=== PATIENT | female | born 2000 | race Caucasian/White ===

== ENCOUNTER 2020-11-25 18:29 | Inpatient (IN) ==
[2020-11-25] MEDS ORDERED: SODIUM CHLORIDE 0.9% 1000ML 1,000 ML IV SCH (18:45)
--- NOTE | 2020-11-25 18:51 | Emergency Department Note ---
Impression & Plan Benzodiazepine overdose, Somnolence, Suicidal ideation, Depression ED Provider Note NAME: DEB PAGAN AGE: 20 SEX: F : 2000 ARRIVES VIA: Ambulance INFORMANT: [Patient][ems] ED PROVIDER(S): [George Radford MD] CHIEF COMPLAINT: Intentional overdose HISTORY OF PRESENT ILLNESS: The patient is a 20-year-old female who was brought by EMS. She states that about an hour ago she took a handful of 0.25 mg Xanax tablets. She did this as a suicide attempt. She then realized that she did not want to and called the ambulance. The patient denies any alcohol use or any other medications ingested. She states that she has been feeling depressed for about 3 days, she is not sure why. She states that today, her and her boyfriend had a large argument and she states that this pushed her into the overdose. There has been no vomiting, she has been well lately. No fever or chills or cough or congestion. She had a sore throat about a week ago but this has re solved. Patient is a [employer] student. She has been back in this area for about 4 weeks. She states that she is from [place]. The patient states she feels a little sleepy right now but otherwise fine. REVIEW OF SYSTEMS: See HPI for pertinent positives and negatives. A total of ten systems were reviewed and were otherwise negative. PMHx/PSHx: See Below SOCIAL HISTORY: See Below. PHYSICAL EXAM: GENERAL: Patient is in no acute distress. HEENT: No acute trauma, normocephalic atraumatic, mucous membranes moist, no nasal congestion, no scleral icterus. NECK: No stridor, no adenopathy, no meningismus, trachea is midline. LUNGS: Clear to auscultation bilaterally, no wheeze, no rhonchi, breath sounds equal. HEART: Without murmurs gallops or rubs, regular rate and rhythm. ABDOMEN: Soft, nontender, bowel sounds positive, no hernias, no peritonitis. EXTREMITIES: No cyanosis or edema, full range of motion of all the joints without pain or difficulty, no signs for acute trauma. NEUROLOGIC: Oriented x 3, no acute motor or sensory deficits, no focal weakness. SKIN: No rash, no jaundice, no diaphoresis. Psychiatric: Cooperative, currently voluntary. Admits to a suicide attempt by taking a Xanax overdose. DIFFERENTIAL DIAGNOSIS: Mood disorder, infection, hypoglycemia, electrolyte abnormalities, cardiac sources, suicidal ideation, depression, overdose, alcohol abuse, intracerebral event, toxicologic etiology, trauma, neurologic event, as well as other pathologies. EMERGENCY DEPARTMENT COURSE/PROCEDURES: ECG: Indication was overdose. The ECG shows a normal sinus rhythm with some sinus arrhythmia. The rate is 66. The QTc is 406. There is no ST elevation, no PVCs. Continuous Cardiac Monitoring: An order was placed for continuous cardiac monitoring. The monitor shows a rate of 71 with normal sinus rhythm. Critical Care Note: I have personally spent 44 minutes of critical care time in the direct management of this patient. This includes bedside care, interpretation of diagnostic studies, and testing, discussion with consultants, patient, and family members, and other required patient management activities. This 44 minutes is in excess of all separately billable procedures. MEDICAL DECISION MAKING: There is no leukocytosis or concerning anemia. There is a normal platelet count. No significant electrolyte abnormality or kidney failure. Bilirubin is slightly elevated but the remaining liver enzymes are unremarkable. Patient appeared to be in a euthyroid state. testing returned negative. Uri nalysis did not show infection. Urine tox was positive for benzos and marijuana. Alcohol, Tylenol and aspirin levels were essentially undetectable. ECG showed a sinus rhythm, there was no acute ischemic change. On exam, the patient was slightly somnolent and sleepy but, able to answer questions, her airway was intact. She was not hypotensive, she was not toxic. The patient did admit to taking Xanax in overdose as a suicide attempt. The patient was given a liter of IV saline, she was placed on the cafeteria monitor. She was watched closely by our staff. I did speak to the poison center. The poison center recommended observation for around 6 hours. If she remained interactive, if her vital signs remained stable, she would at that point be medically clear for a psychiatric evaluation. Supportive measures were recommended for her overdose. The patient has done well in the ED. She was observed for the time advised. She has had no airway issues, her vital signs remain stable. She has been able to answer questions and is arousable. She still is somewhat sleepy but not as sleepy as earlier. The patient is currently voluntary. A 302 petition has been filled out in case she would try to leave. She does need hospitalization for this overdose. Patient was seen by psychiatry case management. A bed search is underway. Patient is currently resting in her room. Case is being assumed by Dr. Victoria at the change of shift, please see his notes for the patient's final disposition and plan. Past Med/Surg History Medical History Anorexia nervosa Streptococcal pharyngitis Surgical History No significant past surgical history Social History Smoking Status: Never smoker Preferred Language: Bahamian Feels Safe at Home: Yes Allergies Allergies Allergy/AdvReac Type Severity Reaction Status Date / Time gluten AdvReac Unknown Unverified 11/25/20 20:26 lactase [From Dairy Aid] AdvReac Unknown Unverified 11/25/20 20:26 soy AdvReac Unknown Unverified 11/25/20 20:26 Home Meds Home Medications Medication Instructions Recorded Confirmed norethindrone ac-eth estradiol 1 tab PO QAM 11/14/19 11/25/20 [11/07 ()] hygfgyo-[id number] 1 tab PO QAM 11/25/20 11/25/20 clonidine HCl 0.1 mg PO QAM 11/25/20 11/25/20 multivitamin 1 tab PO QAM 11/25/20 11/25/20 venlafaxine 100 mg PO QAM 11/25/20 11/25/20 Results & Data (ED) Vital Signs Vital Signs - 24 hr 11/25/20 18:30 11/25/20 18:36 11/25/20 18:41 Temperature 37 C Temperature Source Oral Pulse Rate 71 81 69 Pulse Rate from SpO2 Sensor 78 71 Respiratory Rate 12 14 17 Respiratory Effort / Characteristics Non-Labored Respiratory Depth Normal Respiratory Pattern Regular Blood Pressure 118/75 118/75 Blood Pressure Mean 89 89 Blood Pressure Position Sitting Pulse Oximetry 100 99 99 Oxygen Delivery Method Room Air Sepsis Recent Fever Within 48 Hours No Sepsis New/Unexplained Change in Mental Status N/A Sepsis Action Taken by Nursing No Action Required 11/25/20 18:45 11/25/20 19:00 11/25/20 19:01 Temperature Temperature Source Pulse Rate 74 80 75 Pulse Rate from SpO2 Sensor 72 76 77 Respiratory Rate 21 22 17 Respiratory Effort / Characteristics Respiratory Depth Respiratory Pattern Blood Pressure 110/73 Blood Pressure Mean 85 Blood Pressure Position Pulse Oximetry 100 100 100 Oxygen Delivery Method Sepsis Recent Fever Within 48 Hours Sepsis New/Unexplained Change in Mental Status Sepsis Action Taken by Nursing 11/25/20 19:08 11/25/20 19:15 11/25/20 19:30 Temperature Temperature Source Pulse Rate 72 67 69 Pulse Rate from SpO2 Sensor 74 72 71 Respiratory Rate 13 14 21 Respiratory Effort / Characteristics Respiratory Depth Respiratory Pattern Blood Pressure 109/72 97/75 L Blood Pressure Mean 84 82 Blood Pressure Position Pulse Oximetry 100 95 100 Oxygen Delivery Method Sepsis Recent Fever Within 48 Hours Sepsis New/Unexplained Change in Mental Status Sepsis Action Taken by Nursing 11/25/20 19:31 11/25/20 19:45 11/25/20 20:00 Temperature Temperature Source Pulse Rate 73 61 63 Pulse Rate from SpO2 Sensor 74 60 63 Respiratory Rate 21 17 19 Respiratory Effort / Characteristics Respiratory Depth Respiratory Pattern Blood Pressure 106/68 Blood Pressure Mean 80 Blood Pressure Position Pulse Oximetry 100 99 99 Oxygen Delivery Method Sepsis Recent Fever Within 48 Hours Sepsis New/Unexplained Change in Mental Status Sepsis Action Taken by Nursing 11/25/20 20:01 11/25/20 20:15 11/25/20 20:30 Temperature Temperature Source Pulse Rate 65 75 68 Pulse Rate from SpO2 Sensor 64 71 68 Respiratory Rate 20 18 20 Respiratory Effort / Characteristics Respiratory Depth Respiratory Pattern Blood Pressure 106/72 Blood Pressure Mean 83 Blood Pressure Position Pulse Oximetry 99 100 99 Oxygen Delivery Method Sepsis Recent Fever Within 48 Hours Sepsis New/Unexplained Change in Mental Status Sepsis Action Taken by Nursing 11/25/20 20:31 11/25/20 20:45 11/25/20 21:00 Temperature Temperature Source Pulse Rate 71 73 74 Pulse Rate from SpO2 Sensor 71 73 73 Respiratory Rate 20 20 16 Respiratory Effort / Characteristics Respiratory Depth Respiratory Pattern Blood Pressure 109/71 Blood Pressure Mean 83 Blood Pressure Position Pulse Oximetry 98 97 97 Oxygen Delivery Method Room Air Sepsis Recent Fever Within 48 Hours Sepsis New/Unexplained Change in Mental Status Sepsis Action Taken by Snf Medications Current Medication List: was personally reviewed by me Laboratory Data Attestation: I reviewed the patient's lab results. Result diagrams: 11/25/20 19:03 11/25/20 19:03 Lab Results 11/25/20 11/25/20 11/25/20 Range/Units 19:03 19:03 19:03 WBC 8.19 (4.8-10.8) K/uL RBC 4.68 (4.2-5.4) M/uL Hgb 14.5 (12.0-16.0) g/dL Hct 41.8 (37-47) % MCV 89.3 (80-100) fL MCH 31.0 (25-34) pg MCHC 34.7 (32-36) g/dL RDW Std Deviation 40.8 (36.4-46.3) fL RDW Coeff of Heber 12.6 (11.5-14.5) % Plt Count 251 (130-400) K/uL MPV 11.1 H (7.4-10.4) fL Immature Gran % (Auto) 0.1 % Neut % (Auto) 64.3 % Lymph % (Auto) 29.4 % [place] % (Auto) 5.6 % Eos % (Auto) 0.4 % Baso % (Auto) 0.2 % Neut # (Auto) 5.26 (1.4-6.5) K/uL Lymph # (Auto) 2.41 (1.2-3.4) K/uL [place] # (Auto) 0.46 (0.11-0.59) K/uL Eos # (Auto) 0.03 (0-0.5) K/uL Baso # (Auto) 0.02 (0-0.2) K/uL Immature Gran # (Auto) 0.01 (0.00-0.02) K/uL Sodium 141 (136-145) mmol/L Potassium 4.4 (3.5-5.1) mmol/L Chloride 106 (98-107) mmol/L Carbon Dioxide 28 (21-32) mmol/L Anion Gap 7.0 (3-11) BUN 11 (7-18) mg/dl Creatinine 0.87 (0.6-1.2) mg/dl Est Cr Clr Drug Dosing 84.0 ml/min Est GFR ( Amer) 110.4 Est GFR (Non-Af Amer) 95.2 BUN/Creatinine Ratio 12.5 (10-20) Glucose 82 (70-99) mg/dl Calcium 9.5 (8.5-10.1) mg/dl Total Bilirubin 1.3 H (0.2-1) mg/dl AST 11 L (15-37) U/L ALT 17 (12-78) U/L Alkaline Phosphatase 60 (45-117) U/L Total Protein 7.1 (6.4-8.2) gm/dl Albumin 4.0 (3.4-5.0) gm/dl Globulin 3.1 (2.5-4.0) gm/dl Albumin/Globulin Ratio 1.3 (0.9-2) TSH 1.300 (0.300-4.500) uIu/ml HCG, Qual (Negative) Urine Color Urine Appearance (Clear) Urine pH (4.5-7.5) Ur Specific [place] (1.000-1.030) Urine Protein (Negative) Urine Glucose (UA) (Negative) Urine Ketones (Negative) Urine Blood (Negative) Urine Nitrite (Negative) Urine Bilirubin (Negative) Urine Urobilinogen (Negative) Ur Leukocyte Esterase (Negative) Urine WBC (Auto) (0-5) /hpf Urine RBC (Auto) (0-4) /hpf U Hyaline Cast (Auto) (0-5) /lpf U Epithel Cells (Auto) (0-5) /lpf Urine Bacteria (Auto) (Negative) Salicylates < 1.7 L (2.8-20) mg/dl Urine Opiates Screen (Neg) Ur Methadone, Qual (Neg) Acetaminophen < 2 L (10-30) ug/ml Urine Barbiturates (Neg) Ur Phencyclidine (PCP) (Neg) U Amphetamin/Meth Scrn (Neg) MDMA (Ecstasy) Screen (Neg) U Benzodiazepines Scrn (Neg) Ur Cocaine Metabolite (Neg) U Marijuana (THC) Screen (Neg) Ethyl Alcohol mg/dL (0-3) mg/dl COVID-19 Eval Order SARS-CoV-2, RNA, NAAT (NEGATIVE) 11/25/20 11/25/20 11/25/20 Range/Units 19:03 19:03 20:14 WBC (4.8-10.8) K/uL RBC (4.2-5.4) M/uL Hgb (12.0-16.0) g/dL Hct (37-47) % MCV (80-100) fL MCH (25-34) pg MCHC (32-36) g/dL RDW Std Deviation (36.4-46.3) fL RDW Coeff of Heber (11.5-14.5) % Plt Count (130-400) K/uL MPV (7.4-10.4) fL Immature Gran % (Auto) % Neut % (Auto) % Lymph % (Auto) % [place] % (Auto) % Eos % (Auto) % Baso % (Auto) % Neut # (Auto) (1.4-6.5) K/uL Lymph # (Auto) (1.2-3.4) K/uL [place] # (Auto) (0.11-0.59) K/uL Eos # (Auto) (0-0.5) K/uL Baso # (Auto) (0-0.2) K/uL Immature Gran # (Auto) (0.00-0.02) K/uL Sodium (136-145) mmol/L Potassium (3.5-5.1) mmol/L Chloride (98-107) mmol/L Carbon Dioxide (21-32) mmol/L Anion Gap (3-11) BUN (7-18) mg/dl Creatinine (0.6-1.2) mg/dl Est Cr Clr Drug Dosing ml/min Est GFR ( Amer) Est GFR (Non-Af Amer) BUN/Creatinine Ratio (10-20) Glucose (70-99) mg/dl Calcium (8.5-10.1) mg/dl Total Bilirubin (0.2-1) mg/dl AST (15-37) U/L ALT (12-78) U/L Alkaline Phosphatase (45-117) U/L Total Protein (6.4-8.2) gm/dl Albumin (3.4-5.0) gm/dl Globulin (2.5-4.0) gm/dl Albumin/Globulin Ratio (0.9-2) TSH (0.300-4.500) uIu/ml HCG, Qual Negative (Negative) Urine Color Urine Appearance (Clear) Urine pH (4.5-7.5) Ur Specific [place] (1.000-1.030) Urine Protein (Negative) Urine Glucose (UA) (Negative) Urine Ketones (Negative) Urine Blood (Negative) Urine Nitrite (Negative) Urine Bilirubin (Negative) Urine Urobilinogen (Negative) Ur Leukocyte Esterase (Negative) Urine WBC (Auto) (0-5) /hpf Urine RBC (Auto) (0-4) /hpf U Hyaline Cast (Auto) (0-5) /lpf U Epithel Cells (Auto) (0-5) /lpf Urine Bacteria (Auto) (Negative) Salicylates (2.8-20) mg/dl Urine Opiates Screen (Neg) Ur Methadone, Qual (Neg) Acetaminophen (10-30) ug/ml Urine Barbiturates (Neg) Ur Phencyclidine (PCP) (Neg) U Amphetamin/Meth Scrn (Neg) MDMA (Ecstasy) Screen (Neg) U Benzodiazepines Scrn (Neg) Ur Cocaine Metabolite (Neg) U Marijuana (THC) Screen (Neg) Ethyl Alcohol mg/dL < 3.0 (0-3) mg/dl COVID-19 Eval [facility] SARS-CoV-2, RNA, NAAT (NEGATIVE) 11/25/20 11/25/20 11/25/20 Range/Units 20:14 22:30 22:30 WBC (4.8-10.8) K/uL RBC (4.2-5.4) M/uL Hgb (12.0-16.0) g/dL Hct (37-47) % MCV (80-100) fL MCH (25-34) pg MCHC (32-36) g/dL RDW Std Deviation (36.4-46.3) fL RDW Coeff of Heber (11.5-14.5) % Plt Count (130-400) K/uL MPV (7.4-10.4) fL Immature Gran % (Auto) % Neut % (Auto) % Lymph % (Auto) % [place] % (Auto) % Eos % (Auto) % Baso % (Auto) % Neut # (Auto) (1.4-6.5) K/uL Lymph # (Auto) (1.2-3.4) K/uL [place] # (Auto) (0.11-0.59) K/uL Eos # (Auto) (0-0.5) K/uL Baso # (Auto) (0-0.2) K/uL Immature Gran # (Auto) (0.00-0.02) K/uL Sodium (136-145) mmol/L Potassium (3.5-5.1) mmol/L Chloride (98-107) mmol/L Carbon Dioxide (21-32) mmol/L Anion Gap (3-11) BUN (7-18) mg/dl Creatinine (0.6-1.2) mg/dl Est Cr Clr Drug Dosing ml/min Est GFR ( Amer) Est GFR (Non-Af Amer) BUN/Creatinine Ratio (10-20) Glucose (70-99) mg/dl Calcium (8.5-10.1) mg/dl Total Bilirubin (0.2-1) mg/dl AST (15-37) U/L ALT (12-78) U/L Alkaline Phosphatase (45-117) U/L Total Protein (6.4-8.2) gm/dl Albumin (3.4-5.0) gm/dl Globulin (2.5-4.0) gm/dl Albumin/Globulin Ratio (0.9-2) TSH (0.300-4.500) uIu/ml HCG, Qual (Negative) Urine Color Dark Yellow Urine Appearance Clear (Clear) Urine pH 6.5 (4.5-7.5) Ur Specific [place] 1.022 (1.000-1.030) Urine Protein 1+ H (Negative) Urine Glucose (UA) Negative (Negative) Urine Ketones 1+ H (Negative) Urine Blood Negative (Negative) Urine Nitrite Negative (Negative) Urine Bilirubin Negative (Negative) Urine Urobilinogen Negative (Negative) Ur Leukocyte Esterase Negative (Negative) Urine WBC (Auto) 1-5 (0-5) /hpf Urine RBC (Auto) 0-4 (0-4) /hpf U Hyaline Cast (Auto) 1-5 (0-5) /lpf U Epithel Cells (Auto) >30 H (0-5) /lpf Urine Bacteria (Auto) Negative (Negative) Salicylates (2.8-20) mg/dl Urine Opiates Screen Neg (Neg) Ur Methadone, Qual Neg (Neg) Acetaminophen (10-30) ug/ml Urine Barbiturates Neg (Neg) Ur Phencyclidine (PCP) Neg (Neg) U Amphetamin/Meth Scrn Neg (Neg) MDMA (Ecstasy) Screen Neg (Neg) U Benzodiazepines Scrn Pos H (Neg) Ur Cocaine Metabolite Neg (Neg) U Marijuana (THC) Screen Pos H (Neg) Ethyl Alcohol mg/dL (0-3) mg/dl COVID-19 Eval Order SARS-CoV-2, RNA, NAAT NEGATIVE (NEGATIVE) Administered Medications Discontinued Medications Sodium Chloride (Nss 1000ml) 1,000 mls @ 999 mls/hr IV .[id number] SAADIA Stop: 11/25/20 19:45 Last Infusion: 11/25/20 21:00 Dose: 0 mls/hr Documented by: [id number] Admin: 11/25/20 20:09 Dose: 999 mls/hr Documented by: [id number] Discharge Plan Visit Data Chief Complaint: Overdose (Intentional) Stated Complaint: OVERDOSE ED Provider: Ryan Victoria Discharge Problem: Benzodiazepine overdose, Somnolence, Suicidal ideation, Depression Patient Disposition: Still a Patient Condition: Good Forms Stand Alone Forms: [facility], Suicide Prevention Resources Prescriptions Prescriptions: No Action multivitamin Tablet 1 tab PO QAM RF: 0 clonidine HCl 0.1 mg Tablet 0.1 mg PO QAM RF: 0 venlafaxine 100 mg Tablet 100 mg PO QAM RF: 0 [id number]-nvpfwkvnz-byfc [id number] mg Tablet 1 tab PO QAM RF: 0 norethindrone ac-eth estradiol [11/07)] 1-20 mg-mcg tablet 1 tab PO QAM RF: 0 Referrals Referrals: [facility] [Primary Care Provider] - Discharge Problem: Benzodiazepine overdose Qualifiers: Encounter type: initial encounter Injury intent: intentional self-harm Qualified Code(s): T42.4X2A - Poisoning by benzodiazepines, intentional self- harm, initial encounter Depression Qualifiers: Depression Type: unspecified Qualified Code(s): F32.9 - Major depressive disorder, single episode, unspecified
[2020-11-25 19:22] LABS: Basophils # (auto) 0.02 K/uL (0-0.2); Basophils % (auto) 0.2 %; Eosinophils # (auto) 0.03 K/uL (0-0.5); Eosinophils % (auto) 0.4 %; Hematocrit (blood only) 41.8 % (37-47); Hemoglobin 14.5 g/dL (12.0-16.0); Immature Granulocytes # (auto) 0.01 K/uL (0.00-0.02); Immature Granulocytes % (auto) 0.1 %; Lymphocytes # (auto) 2.41 K/uL (1.2-3.4); Lymphocytes % (auto) 29.4 %; Mean Corpuscular Hgb Conc 34.7 g/dL (32-36); Mean Corpuscular Volume 89.3 fL (80-100); Mean Platelet Volume 11.1 fL (7.4-10.4); Monocytes # (auto) 0.46 K/uL (0.11-0.59); Monocytes % (auto) 5.6 %; Neutrophils # (auto) 5.26 K/uL (1.4-6.5); Neutrophils % (auto) 64.3 %; Platelet Count 251 K/uL (130-400); RDW Coefficient of Variation 12.6 % (11.5-14.5); RDW Standard Deviation 40.8 fL (36.4-46.3); Red Blood Count 4.68 M/uL (4.2-5.4); White Blood Count 8.19 K/uL (4.8-10.8)
[2020-11-25 19:41] LABS: BUN Creatinine Ratio 12.5 (10-20); Calcium 9.5 mg/dl (8.5-10.1); Est GFR (African American) 110.4; Est GFR (Non-African American) 95.2; Potassium 4.4 mmol/L (3.5-5.1)
[2020-11-25 19:42] LABS: Acetaminophen < 2 ug/ml (10-30); Pregnancy Test, Serum Negative (Negative); Salicylate < 1.7 mg/dl (2.8-20)
[2020-11-25 19:52] LABS: Albumin Globulin Ratio 1.3 (0.9-2); Bilirubin,Total 1.3 mg/dl (0.2-1); Globulin 3.1 gm/dl (2.5-4.0); Thyroid Stimulating Hormone 1.3 uIu/ml (0.300-4.500); Total Protein 7.1 gm/dl (6.4-8.2)
[2020-11-25 22:47] LABS: Appearance Urine Clear (Clear); Bacteria Urine Automated Negative (Negative); Bilirubin Urine Negative (Negative); Blood Urine Negative (Negative); Color Urine Dark Yellow; Epithelial Cell Urine Auto >30 /lpf (0-5); Glucose Urine UA Negative (Negative); Ketones Urine 1+ (Negative); Leukocyte Esterase Urine Negative (Negative); Nitrite Urine Negative (Negative); Protein Urine 1+ (Negative); RBC Urine Automated 0-4 /hpf (0-4); Specific Gravity Urine 1.022 (1.000-1.030); Urobilinogen Urine Negative (Negative); pH Urine 6.5 (4.5-7.5)
[2020-11-25 23:02] LABS: Amphetamines+Metham, Urine Neg (Neg); Barbiturates, Urine Neg (Neg); Benzodiazepine, Urine Pos (Neg); Cocaine, Urine Neg (Neg); MDMA (Ecstacy), Urine Neg (Neg); Methadone, Urine Neg (Neg); Opiate, Urine Neg (Neg); Phencyclidine, Urine Neg (Neg)
--- NOTE | 2020-11-25 23:43 | Emergency Department Note ---
ED Visit Note Received patient in signout. History and physical verified by me. Patient accepted to [facility] . : Benzodiazepine overdose Qualifiers: Encounter type: initial encounter Injury intent: intentional self-harm Qualified Code(s): T42.4X2A - Poisoning by benzodiazepines, intentional self- harm, initial encounter Depression Qualifiers: Depression Type: unspecified Qualified Code(s): F32.9 - Major depressive disorder, single episode, unspecified
[2020-11-26] MEDS ORDERED: ACETAMINOPHEN 325 MG TAB PO PRN (02:52)
[2020-11-26] MEDS ORDERED: BISMUTH SUBSALICYLATE LIQD 236 ML PO PRN (02:52)
[2020-11-26] MEDS ORDERED: SODIUM CHLORIDE 0.65% NA SOLN 45 ML (OCEAN) PRN (02:52)
[2020-11-26] MEDS ORDERED: MAGNESIUM HYDROXIDE SUSP 30 ML UDC PO PRN (02:52)
[2020-11-26] MEDS ORDERED: hydrOXYzine HCl 25 MG TAB PO PRN ×2 (02:52)
--- NOTE | 2020-11-26 08:58 | Electrocardiogram Report ---
Test Reason : Blood Pressure : / mmHG Vent. Rate : 066 BPM Atrial Rate : 066 BPM P-R Int : 144 ms QRS Dur : 068 ms QT Int : 388 ms P-R-T Axes : 044 065 037 degrees QTc Int : 406 ms Normal sinus rhythm with sinus arrhythmia Normal ECG No previous ECGs available Confirmed by Juan Carpenter ([id number]) on 11/26/2020 8:58:13 AM Referred By: REFERRED SELF Confirmed By:Juan Carpenter
[2020-11-26] MEDS ORDERED: [UNRECOGNIZED DRUG - OTHER] PO SCH (09:00)
[2020-11-26] MEDS ORDERED: NORETHINDRONE AC ETH ESTRADIOL PO SCH (09:00)
[2020-11-26] MEDS: MULTIVITAMIN TAB PO SCH (10:25)
--- NOTE | 2020-11-26 11:05 | History & Physical ---
Date of Service November 26, 2020 Impression / Recommendations Impression 20 yo female with a history of anorexia nervosa and recurrent depressive symptoms with anxious distress presents after impulsive OD of Xanax. (1) Depression: 11/26--The patient was admitted to the [facility] ([facility] mental health unit) on q15 min checks (behavioral with suicide precautions) for safety. The patient will participate in group, recreational, and milieu therapies and will be offered additional individual and family sessions as clinically appropriate. LM for outpatient treating prescriber (Dr. Mooney [phone]) to coordinate care, particularly around controlled substances and my impression that may benefit from a trial of Abilify augmentation of Pristiq given recurrent nature of depression, ?cyclothymia, early ED recovery, and need to minimize benzos following OD. Also to determine need for local psychiatry care if does stay at [facility]. Reviewed that Pristiq is non-formulary and she bevieves boyfriend may be willing to bring today. Reviewed that can have discontinuation syndrome as well. She would rather miss dose today than take Effexor replacement. Depression Type: unspecified Qualified Code(s): F32.9 - Major depressive disorder, single episode, unspecified (2) Benzodiazepine overdose: 11/26--currently sleepy from lack of sleep in ED, doesn't appear to have any lasting sedation from Xanax OD. Klonopin was held this am. Patient was made aware she will not receive Xanax prn here as she misused it and prn Vistaril will be available. Reviewed that I am also concerned about depressant effects of ongoing Klonopin use, particularly in combo with regular MJ use and although won't be stopped abruptly will start tapering dose here to avoid withdrawal. Klonopin 0.25 mg BID starting tonight (previous dose prior to OD Klonopin 0.5 mg BID). Encounter type: initial encounter Injury intent: intentional self-harm Qualified Code(s): T42.4X2A - Poisoning by benzodiazepines, intentional self-harm, initial encounter (3) Anorexia nervosa: has rather limited diet given allergies and celiac disease. involve nutrition as necessary, monitor PO intake. Risk Factors Assessment Do You Have Access To A Gun?: No Protective Factors Assessment Employed: No Psychiatric History Identifying Data SAADIA PAGAN is a 20-year-old F, [employer] student from [place], has a history of anorexia nervosa, and was admitted on 11/26/20 02:04 on a 201 voluntary commitment following a Xanax OD. Chief Complaint "I just got really down for a few days". History of Present Illness Saadia states that her mood has been "up and down" over the past year. She has struggled with restricting subtype of anorexia and had inpatient residential treatment last year. She states she has been doing well since, maintaining care providers/appointments while home in [place] and with HEALS team at [facility] when here in [place]. She states that she has non-specific anxiety re: change and ability to manage her ED and has been using Klonopin consistently for several months without incident. She denies panic, states does use prn Xanax for breakthrough anxiety though also relies on MJ most nights for anxiety/sleep. She feels it is also helpful for her appetite and ED recovery and comes from a state where it is legal but hasn't sought a medical card in [place]. 2 days leading up to OD of "a handful" of Xanax 0.25 mg she was having difficult sleeping, feeling low, and getting more rigid about her meal plan. The OD occurred following an argument with her boyfriend and she is not clear that they are/aren't broken up. She denies poor appetite but states when these spells happen, about once a month (no association with menses as on continuous suppression with OCP). She also has periods of up to a few weeks were her mood is "better than ever" and she is "super productive, like I'm on top of ev erything and get alot done and am very happy". She denies distractibility, pressured speech, impulsivity, etc during that time and states that others only notice when she is depressed as she is pretty outgoing/fun loving at baseline. Overall she likes Pristiq better than past medications and finds it helpful though "I still get really anxious at times" and doesn't like feeling these shifts "out of nowhere". She argued with her mother in ED over need for admission and declined an BRIAN but did communicate her whereabouts to father and step-father. Past Psychiatric History Previous Psych History: anorexia nervosa, unspecified depressive disorder and RONALD. Current Psychiatric Diagnosis: Depression Outpatient Services: [facility] with group, nutrition, medication management per Cari--Dr. Lisa Mooney. Previous Psych Admissions: no psych, yes for residential ED Do You Have Access To A Gun?: No History of Previous Suicide Attempt: No Past Medication Trials: Lexapro, Venlafaxine (hated it, discontinuation syndrome), Ativan (withdrawal) Past Head Trauma/Neuro History History of Concussion/Seizure: No Allergies Allergy/AdvReac Type Severity Reaction Status Date / Time gluten AdvReac Unknown Unverified 11/25/20 20:26 lactase [From Dairy Aid] AdvReac Unknown Unverified 11/25/20 20:26 soy AdvReac Unknown Unverified 11/25/20 20:26 Home Medications Medication Instructions Recorded Confirmed Type norethindrone ac-eth estradiol 1 tab PO QAM 11/14/19 11/25/20 History [11/07 ()] [id number] 1 tab PO QAM 11/25/20 11/25/20 History multivitamin 1 tab PO QAM 11/25/20 11/25/20 History alprazolam [Xanax] 0.25 mg PO TID PRN 11/26/20 11/26/20 History clonazepam [Klonopin] 0.5 mg PO BID 11/26/20 11/26/20 History desvenlafaxine succinate [Pristiq] 100 mg PO DAILY 11/26/20 11/26/20 History Family History Family History of: Depression (paternal grandmother (2 suicide attempts--1 dramatic with head in oven); sister seasonal depression), Anxiety (father), Alcoholism/Drug Abuse (aunt) and Bipolar (suspected in paternal aunt) Alcohol History Hx of Alcohol Use Over the Past 12 Months: No AUDIT Total Score: 5 Smoking Use Have You Smoked or Used Tobacco Products in the Last 30 Days: No Smoking Status: Never smoker Substance History Hx of Prescription Med Misuse Over the Past 12 Months: No Hx of Over the Counter Med Misuse Over the Past 12 Months: No Hx of Inhalent Misuse Over the Past 12 Months: No Hx of Organic Substance Use Over the Past 12 Months: Yes (UDS + Marijuana) Hx of Illegal Substances/Street Drug Use Over Past 12 Months: No Problems as a Result of Past Substance Use: None Identified Personal History Living Arrangements: Apartment Childhood: parents , younger 1/2 brother (father and step-mother), older sister Highest Grade Completed: College Employment Status: Student Number Of Children: none Beliefs That Will Affect Care: None Current Legal Problems: No Hx Traumatic Life Events: No Patient History Medical History Anorexia nervosa Streptococcal pharyngitis Surgical History No significant past surgical history Social History Smoking Status: Never smoker Preferred Language: Irish Communication Ability: Effective 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 Required: No Beliefs That Will Affect Care: None Feels Safe at Home: Yes Assistive Devices: Glasses Review of Systems Review of Systems: All systems reviewed & are unremarkable except as noted in HPI & below Physical Exam Psychiatric: Orientation: alert Apperance: appropriately dressed Eye Contact: good eye contact Motor Behavior: no abnormal motor movements Speech: normal rate/rhythm/volume of speech Affect: euthymic affect Mood: + depressed mood Thought Process: linear/logical thought process Thought Content: reality based without delusions Suicidal Thoughts: denies suicidal thoughts Homicidal Thoughts: denies homicidal thoughts Hallucinations: no auditory hallucinations and no visual hallucinations Cognition: attention grossly intact Estimated Intelligence: consistent with education level Insight: + limited insight Judgement: + limited judgement Vital Signs (Past 24 Hours): Last Vital Signs Temp 36.6 C 11/26/20 06:42 Pulse 74 11/26/20 06:43 Resp 16 11/26/20 06:42 BP 85/53 L 11/26/20 06:43 Pulse Ox 97 11/26/20 02:56 Exam Statement: A physical exam was performed in the ED by Dr. Radford for the purposes of medical clearance and Dr. Victoria reconfirmed clearance after period of monitoring. I accept the ED physical as correct and adequate for the purposes of the inpatient physical exam. Results & Data ([facility]) Laboratory Results Laboratory Results - last 24 hr 11/25/20 11/25/20 11/25/20 19:03 19:03 19:03 WBC 8.19 RBC 4.68 Hgb 14.5 Hct 41.8 MCV 89.3 MCH 31.0 MCHC 34.7 RDW Std Deviation 40.8 RDW Coeff of [place] 12.6 Plt Count 251 MPV 11.1 H Immature Gran % (Auto) 0.1 Neut % (Auto) 64.3 Lymph % (Auto) 29.4 [place] % (Auto) 5.6 Eos % (Auto) 0.4 Baso % (Auto) 0.2 Neut # (Auto) 5.26 Lymph # (Auto) 2.41 [place] # (Auto) 0.46 Eos # (Auto) 0.03 Baso # (Auto) 0.02 Immature Gran # (Auto) 0.01 Sodium 141 Potassium 4.4 Chloride 106 Carbon Dioxide 28 Anion Gap 7.0 BUN 11 Creatinine 0.87 Est Cr Clr Drug Dosing 84.0 Est GFR ( Amer) 110.4 Est GFR (Non-Af Amer) 95.2 BUN/Creatinine Ratio 12.5 Glucose 82 Calcium 9.5 Total Bilirubin 1.3 H AST 11 L ALT 17 Alkaline Phosphatase 60 Total Protein 7.1 Albumin 4.0 Globulin 3.1 Albumin/Globulin Ratio 1.3 TSH 1.300 HCG, Qual Urine Color Urine Appearance Urine pH Ur Specific [place] Urine Protein Urine Glucose (UA) Urine Ketones Urine Blood Urine Nitrite Urine Bilirubin Urine Urobilinogen Ur Leukocyte Esterase Urine WBC (Auto) Urine RBC (Auto) U Hyaline Cast (Auto) U Epithel Cells (Auto) Urine Bacteria (Auto) Salicylates < 1.7 L Urine Opiates Screen Ur Methadone, Qual Acetaminophen < 2 L Urine Barbiturates Ur Phencyclidine (PCP) U Amphetamin/Meth Scrn MDMA (Ecstasy) Screen U OH-Alprazolam Confrm U Benzodiazepines Scrn 7-Amino Clonazepam Ur Nordiazepam Confirm U OH-ethylflurazepam U Lorazepam Cnf GC/MS U Oxazepam Confm GC/MS Ur Temazepam Confirm U OH-Triazolam Confirm U OH-Midazolam Confirm Ur Cocaine Metabolite U Marijuana (THC) Screen U Marijuana THC Carboxy Drug Screen Comment Ethyl Alcohol mg/dL COVID-19 Eval Order SARS-CoV-2, RNA, NAAT 11/25/20 11/25/20 11/25/20 19:03 19:03 20:14 WBC RBC Hgb Hct MCV MCH MCHC RDW Std Deviation RDW Coeff of [place] Plt Count MPV Immature Gran % (Auto) Neut % (Auto) Lymph % (Auto) [place] % (Auto) Eos % (Auto) Baso % (Auto) Neut # (Auto) Lymph # (Auto) [place] # (Auto) Eos # (Auto) Baso # (Auto) Immature Gran # (Auto) Sodium Potassium Chloride Carbon Dioxide Anion Gap BUN Creatinine Est Cr Clr Drug Dosing Est GFR ( Amer) Est GFR (Non-Af Amer) BUN/Creatinine Ratio Glucose Calcium Total Bilirubin AST ALT Alkaline Phosphatase Total Protein Albumin Globulin Albumin/Globulin Ratio TSH HCG, Qual Negative Urine Color Urine Appearance Urine pH Ur Specific [place] Urine Protein Urine Glucose (UA) Urine Ketones Urine Blood Urine Nitrite Urine Bilirubin Urine Urobilinogen Ur Leukocyte Esterase Urine WBC (Auto) Urine RBC (Auto) U Hyaline Cast (Auto) U Epithel Cells (Auto) Urine Bacteria (Auto) Salicylates Urine Opiates Screen Ur Methadone, Qual Acetaminophen Urine Barbiturates Ur Phencyclidine (PCP) U Amphetamin/Meth Scrn MDMA (Ecstasy) Screen U OH-Alprazolam Confrm U Benzodiazepines Scrn 7-Amino Clonazepam Ur Nordiazepam Confirm U OH-ethylflurazepam U Lorazepam Cnf GC/MS U Oxazepam Confm GC/MS Ur Temazepam Confirm U OH-Triazolam Confirm U OH-Midazolam Confirm Ur Cocaine Metabolite U Marijuana (THC) Screen U Marijuana THC Carboxy Drug Screen Comment Ethyl Alcohol mg/dL < 3.0 COVID-19 Eval [facility] SARS-CoV-2, RNA, NAAT 11/25/20 11/25/20 11/25/20 20:14 22:30 22:30 WBC RBC Hgb Hct MCV MCH MCHC RDW Std Deviation RDW Coeff of [place] Plt Count MPV Immature Gran % (Auto) Neut % (Auto) Lymph % (Auto) [place] % (Auto) Eos % (Auto) Baso % (Auto) Neut # (Auto) Lymph # (Auto) [place] # (Auto) Eos # (Auto) Baso # (Auto) Immature Gran # (Auto) Sodium Potassium Chloride Carbon Dioxide Anion Gap BUN Creatinine Est Cr Clr Drug Dosing Est GFR ( Amer) Est GFR (Non-Af Amer) BUN/Creatinine Ratio Glucose Calcium Total Bilirubin AST ALT Alkaline Phosphatase Total Protein Albumin Globulin Albumin/Globulin Ratio TSH HCG, Qual Urine Color Dark Yellow Urine Appearance Clear Urine pH 6.5 Ur Specific [place] 1.022 Urine Protein 1+ H Urine Glucose (UA) Negative Urine Ketones 1+ H Urine Blood Negative Urine Nitrite Negative Urine Bilirubin Negative Urine Urobilinogen Negative Ur Leukocyte Esterase Negative Urine WBC (Auto) 1-5 Urine RBC (Auto) 0-4 U Hyaline Cast (Auto) 1-5 U Epithel Cells (Auto) >30 H Urine Bacteria (Auto) Negative Salicylates Urine Opiates Screen Neg Ur Methadone, Qual Neg Acetaminophen Urine Barbiturates Neg Ur Phencyclidine (PCP) Neg U Amphetamin/Meth Scrn Neg MDMA (Ecstasy) Screen Neg U OH-Alprazolam Confrm U Benzodiazepines Scrn Pos H 7-Amino Clonazepam Ur Nordiazepam Confirm U OH-ethylflurazepam U Lorazepam Cnf GC/MS U Oxazepam Confm GC/MS Ur Temazepam Confirm U OH-Triazolam Confirm U OH-Midazolam Confirm Ur Cocaine Metabolite Neg U Marijuana (THC) Screen Pos H U Marijuana THC Carboxy Drug Screen Comment Ethyl Alcohol mg/dL COVID-19 Eval Order SARS-CoV-2, RNA, NAAT NEGATIVE 11/25/20 22:30 WBC RBC Hgb Hct MCV MCH MCHC RDW Std Deviation RDW Coeff of [place] Plt Count MPV Immature Gran % (Auto) Neut % (Auto) Lymph % (Auto) [place] % (Auto) Eos % (Auto) Baso % (Auto) Neut # (Auto) Lymph # (Auto) [place] # (Auto) Eos # (Auto) Baso # (Auto) Immature Gran # (Auto) Sodium Potassium Chloride Carbon Dioxide Anion Gap BUN Creatinine Est Cr Clr Drug Dosing Est GFR ( Amer) Est GFR (Non-Af Amer) BUN/Creatinine Ratio Glucose Calcium Total Bilirubin AST ALT Alkaline Phosphatase Total Protein Albumin Globulin Albumin/Globulin Ratio TSH HCG, Qual Urine Color Urine Appearance Urine pH Ur Specific [place] Urine Protein Urine Glucose (UA) Urine Ketones Urine Blood Urine Nitrite Urine Bilirubin Urine Urobilinogen Ur Leukocyte Esterase Urine WBC (Auto) Urine RBC (Auto) U Hyaline Cast (Auto) U Epithel Cells (Auto) Urine Bacteria (Auto) Salicylates Urine Opiates Screen Ur Methadone, Qual Acetaminophen Urine Barbiturates Ur Phencyclidine (PCP) U Amphetamin/Meth Scrn MDMA (Ecstasy) Screen U OH-Alprazolam Confrm Pending U Benzodiazepines Scrn 7-Amino Clonazepam Pending Ur Nordiazepam Confirm Pending U OH-ethylflurazepam Pending U Lorazepam Cnf GC/MS Pending U Oxazepam Confm GC/MS Pending Ur Temazepam Confirm Pending U OH-Triazolam Confirm Pending U OH-Midazolam Confirm Pending Ur Cocaine Metabolite U Marijuana (THC) Screen U Marijuana THC Carboxy Pending Drug Screen Comment Pending Ethyl Alcohol mg/dL COVID-19 Eval Order SARS-CoV-2, RNA, NAAT Current Inpatient Medications Current Inpatient Medications: Current Inpatient Medications Acetaminophen (Acetaminophen 325 Mg Tab) 650 mg PO Q4H PRN PRN Reason: Headache or Minor Fever Stop: 12/26/20 02:51 Al Hydrox/Mg Hydrox/Simethicone (Aluminum/Magnesium Susp 30 Ml Udc) 30 ml PO Q4H PRN PRN Reason: GI Upset Stop: 12/26/20 02:51 Bismuth Subsalicylate (Bismuth Subsalicylate Liqd 236 Ml) 15 ml PO PRN PRN PRN Reason: Loose Stool Stop: 12/26/20 02:51 Hydroxyzine HCl (Hydroxyzine Hcl 25 Mg Tab) 50 mg PO HSZ PRN PRN Reason: Insomnia Stop: 12/26/20 02:51 Hydroxyzine HCl (Hydroxyzine Hcl 25 Mg Tab) 25 mg PO Q4H PRN PRN Reason: Anxiety Stop: 12/26/20 02:51 Magnesium Hydroxide (Magnesium Hydroxide Susp 30 Ml Udc) 30 ml PO DAILY PRN PRN Reason: Constipation Stop: 12/26/20 02:51 Miscellaneous (Norethindrone Ac-Eth Estradiol [11/07 ()] 1-20 Mg-Mcg Tab~Order Awaiting Action) 1 ea N/A QS SAADIA Stop: 12/26/20 07:59 Last Admin: 11/26/20 10:26 Dose: Not Given Documented by: Multivitamins (Multivitamin Tab) 1 tab PO QAM SAADIA Stop: 12/26/20 08:59 Last Admin: 11/26/20 10:25 Dose: 1 tab Documented by: Sodium Chloride (Sodium Chloride 0.65% Na Soln 45 Ml (Newborn)) 1 - 2 sprays NA PRN PRN PRN Reason: Nasal Dryness/Congestion Stop: 12/26/20 02:51
[2020-11-26] MEDS ORDERED: clonazePAM 0.25 MG TAB PO STA (11:07)
--- NOTE | 2020-11-26 19:03 | Communication Note ---
Date of Service: November 26, 2020 spoke with outpatient psychiatrist in [place] at her cell [phone]. She has only seen patient 4 times, next scheduled appointment in December but via telepsych if in state. She expressed concern that patient didn't follow through on local therapy and prefers that she would have both a prescriber and therapist locally in addition to an ED group via HEALS. She did not recall MJ from chart. Is supportive of both benzo taper and in fact states that the Klonopin was to replace the Xanax, not in addition to Klonopin. She will cancel refill of Xanax on file in [place], believes there may be 1 refill on file in [place]. She would also support Abilify trial to augment Pristiq. Agrees that no clear hypomania but dysregulation and co-morbidity and family hx. Reviewed current BMI and hospital diet. If patient returns home she is happy to follow. Reviewed that no determination on that yet as just arrived on unit after 3 am and was not speaking with mother after initial call but likely will allow. Made aware I'm rotating off service and gave permission to list her cell number for future providers.
[2020-11-26] MEDS: clonazePAM 0.25 MG TAB PO SCH (20:53)
[2020-11-26] MEDS: PATIENT'S OWN ORAL CONTRACEPTIVE PO SCH (20:53)
[2020-11-27] MEDS: NON-FORMULARY PATIENT'S OWN MED PO SCH (08:52)
[2020-11-27] MEDS: clonazePAM 0.25 MG TAB PO SCH ×2 (08:53→21:01)
[2020-11-27] MEDS: MULTIVITAMIN TAB PO SCH (08:53)
[2020-11-27] MEDS: PATIENT'S OWN ORAL CONTRACEPTIVE PO SCH (08:57)
[2020-11-27] MEDS ORDERED: NON-FORMULARY MEDICATION (Desvenlafaxine Succinate [Pristiq] 100 mg Tablet Extended Releas PO SCH (09:00)
[2020-11-27] MEDS ORDERED: CALCIUM CARBONATE 500 MG CHEWABLE TAB PO ONE (09:00)
--- NOTE | 2020-11-27 11:09 | Psychiatric Progress Note ---
Date of Service November 27, 2020 Impression / Recommendations Impression 20 yo female with a history of anorexia nervosa and recurrent depressive symptoms with anxious distress presents after impulsive OD of Xanax. (1) Depression: 11/26--The patient was admitted to the [facility] ([facility] unit) on q15 min checks (behavioral with suicide precautions) for safety. The patient will participate in group, recreational, and milieu therapies and will be offered additional individual and family sessions as clinically appropriate. LM for outpatient treating prescriber (Dr. Mooney [phone]) to coordinate care, particularly around controlled substances and my impression that may benefit from a trial of Abilify augmentation of Pristiq given recurrent nature of depression, ?cyclothymia, early ED recovery, and need to minimize benzos following OD. Also to determine need for local psychiatry care if does stay at [facility]. Reviewed that Pristiq is non-formulary and she believes boyfriend may be willing to bring today. Reviewed that can have discontinuation syndrome as well. She would rather miss dose today than take Effexor replacement. 11/27 - Pristiq 100mg was brought in for patient's use while here in the hospital. Reviewed the above [id number] discussion regarding medication recommendations. Augmentation with aripiprazole was reviewed with the patient, who is in favor of starting the medication. Risks, benefits, and potential side effects reviewed with patient verbalizing understanding. - Fasting glucose and lipid panel ordered for tomorrow morning - Family meeting scheduled for tomorrow, will encourage a discussion regarding plan for school - Coordinate aftercare services (2) Benzodiazepine overdose: 11/26--currently sleepy from lack of sleep in ED, doesn't appear to have any lasting sedation from Xanax OD. Klonopin was held this am. Patient was made aware she will not receive Xanax prn here as she misused it and prn Vistaril will be available. Reviewed that I am also concerned about depressant effects of ongoing Klonopin use, particularly in combo with regular MJ use and although won't be stopped abruptly will start tapering dose here to avoid withdrawal. Klonopin 0.25 mg BID starting tonight (previous dose prior to OD Klonopin 0.5 mg BID). 11/27 - Continue clonazepam 0.25mg BID - patient aware of tapered dose and reports desire to eventually avoid use of benzodiazepines - Pt reports feeling less foggy today, denying other physical concerns she perceives to be related to the overdose (3) Anorexia nervosa: has rather limited diet given allergies and celiac disease. involve nutrition as necessary, monitor PO intake. 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 Chief Complaint "Um, my eating disorder was getting out of control for the last week." Review of Systems Notes Constitutional: denied Cardiovascular: denied Respiratory: denied Gastrointestinal: reports GI upset yesterday, believes r/t allergen contamination with food Neurological: denied Psychiatric: denies symptoms other than stated above Total of at least 10 systems reviewed, pertinent positives as above and in HPI. Sleep Information Total Hours of Sleep: 7 Sleep Comments: . Meal Information Percent Meal Consumed - Breakfast: 80 Percent Meal Consumed - Dinner: 100 Subjective Subjective Patient was seen & assessed and interval progress reviewed with nursing and social work. Staff report the patient has been opening up and discussing numerous stressors with staff. Non-formulary Pristiq was brought to the unit and is now available for the patient. She had been discussing plans for a family meeting, possibility involving both parents and their spouses. Pt was seen today to assess progress since admission. The patient is pleasant and talkative, open to discussing stressors she feels contributed to her overdose. The patient states that she was still feeling rather foggy yesterday, but is now able to recall some additional events. Pt reiterated the strong emotional reaction to being told she has "too much baggage." She also shares today that she was having difficulty with her appearance the day prior to her overdose. Pt states she was planning to go out with friends and "put on a pair of jeans I thought would be cute. They fit me Freshman year, but when I put them on they were falling down to my hips. I think it really hit me just how much weight I had been losing. Of course, that sent me into a spiral and I started body checking. I was just feeling really down about myself." Pt states that she has been having to add extra notches to her belt recently and many of her clothes have been fitting more loosely. During this conversation, she is also able to focus on skills she has learned in treatment and seems to be retaining. Pt states she is hoping to ask her roommate to meal plan with her, to allow them to [place] but also offer the patient some support with her treatment. Pt shares that she is able to recognize the significant hopelessness she felt prior to her overdose and states "I really did feel that I would just be easier, for me to just be gone." She states that she is no longer experiencing suicidal thoughts, but is still working on her self-worth. Pt uses numerous phrases of positive affirmation, specifically when discussing her thoughts on being told she has "too much baggage." The patient's perceives that her life experiences actually make her "brave" and she feels she is stronger for this. Pt repeated numerous times that she feels she "a really good person" and even states "thinking about it, I would feel bad for my family if I were gone. Their lives would be a lot more boring, and I do feel I'm a kind person." Pt admits that it is difficult to maintain this positive mentality sometimes, but she is working on surrounding herself with positive supports. Pt was agreeable to the addition of aripiprazole to her medication regimen. We discussed the various uses of the medication, and patient clung in particular to the idea of it being used for mood stabilization properties in some individuals. We discussed that there did not seem to be clear criteria for a bipolar disorder, but patient does feel that she becomes more impulsive and emotionally reactive when she is depressed and states "maybe this will be what I needed all along." Pt states she is eager to have the family meeting with her parents to discuss her plans for school, and her parents have already been offering support. Pt denied other needs or co ncerns today. Physical Exam Psychiatric Orientation: alert, oriented x 3 and cooperative (and pleasant) Apperance: appropriately dressed, appropriately groomed and appeared stated age Thin female, seated in chair. Neatly groomed, with hair in a braid, wearing corrective lenses. Casually dressed in sweatpants and a pull-over sweater. Eye Contact: good eye contact Motor Behavior: steady gait and station and no abnormal motor movements Speech: normal rate/rhythm/volume of speech talkative, but speech is not rapid or pressured Affect: + tearful affect Mood: + depressed mood (but does admit to some improvement since admission) and + anxious mood Thought Process: goal directed thought process and clear/coherent thought process Thought Content: reality based without delusions; no hopelessness and no worthl essness (able to use positive affirmations ) Suicidal Thoughts: denies suicidal thoughts and denies suicidal intent reports she is relieved her attempt did not play out as anticipated. Homicidal Thoughts: denies homicidal thoughts Hallucinations: no auditory hallucinations and no visual hallucinations Cognition: attention grossly intact and language grossly intact; + recent memory not intact patient states she does not recall many events following her overdose. Estimated Intelligence: consistent with education level Insight: + fair insight Judgement: + fair judgement Vital Signs (Past 24 Hours) Last Vital Signs Temp 36.4 C L 11/27/20 06:32 Pulse 56 L 11/27/20 06:32 Resp 16 11/27/20 06:32 BP 92/56 L 11/27/20 06:32 Pulse Ox 97 11/26/20 02:56 Results & Data ([facility]) Current Inpatient Medications Current Inpatient Medications: Current Inpatient Medications Acetaminophen (Acetaminophen 325 Mg Tab) 650 mg PO Q4H PRN PRN Reason: Headache or Minor Fever Stop: 12/26/20 02:51 Al Hydrox/Mg Hydrox/Simethicone (Aluminum/Magnesium Susp 30 Ml Udc) 30 ml PO Q4H PRN PRN Reason: GI Upset Stop: 12/26/20 02:51 Bismuth Subsalicylate (Bismuth Subsalicylate Liqd 236 Ml) 15 ml PO PRN PRN PRN Reason: Loose Stool Stop: 12/26/20 02:51 Clonazepam (Clonazepam 0.25 Mg Tab) 0.25 mg PO BID SAADIA Stop: 12/26/20 20:59 Last Admin: 11/27/20 08:53 Dose: 0.25 mg Documented by: Hydroxyzine HCl (Hydroxyzine Hcl 25 Mg Tab) 50 mg PO HSZ PRN PRN Reason: Insomnia Stop: 12/26/20 02:51 Hydroxyzine HCl (Hydroxyzine Hcl 25 Mg Tab) 25 mg PO Q4H PRN PRN Reason: Anxiety Stop: 12/26/20 02:51 Magnesium Hydroxide (Magnesium Hydroxide Susp 30 Ml Udc) 30 ml PO DAILY PRN PRN Reason: Constipation Stop: 12/26/20 02:51 Miscellaneous (Patient's Own Oral Contraceptive) 1 ea PO DAILY SAADIA Stop: 12/26/20 15:59 Last Admin: 11/27/20 08:57 Dose: 1 ea Documented by: Multivitamins (Multivitamin Tab) 1 tab PO QAM SAADIA Stop: 12/26/20 08:59 Last Admin: 11/27/20 08:53 Dose: 1 tab Documented by: Non-Formulary Medication (Non-Formulary Patient's Own Med) 1 ea PO DAILY SAADIA Stop: 12/27/20 08:59 Last Admin: 11/27/20 08:52 Dose: 1 ea Documented by: Sodium Chloride (Sodium Chloride 0.65% Na Soln 45 Ml ([place])) 1 - 2 sprays NA PRN PRN PRN Reason: Nasal Dryness/Congestion Stop: 12/26/20 02:51 Mental Health & Subst Abuse Tx Therapist Name of Therapist: Autumn Jackson (telehealth) Sketch Artist Name of Sketch Artist: N/A Post Discharge Appointments Primary Care Physician Name Of Family Doctor: [facility] Date of Appointment with PCP: 11/30/20 (1) Depression Depression Type: unspecified Qualified Code(s): F32.9 - Major depressive disorder, single episode, unspecified (2) Benzodiazepine overdose Encounter type: initial encounter Injury intent: intentional self-harm Qualified Code(s): T42.4X2A - Poisoning by benzodiazepines, intentional self- harm, initial encounter
[2020-11-27] MEDS: ARIPiprazole 5 MG TAB PO SCH (13:11)
[2020-11-28 03:52] LABS: 7-Aminoclonaz, Confirm 654 ng/mL (<25); Hydro-Alp Ur, GC/MS >2000 ng/mL (<25); Hydroxyethylflurazepam, Conf NEGATIVE ng/mL (<50); Hydroxymidazolam Ur, GC/MS NEGATIVE ng/mL (<50); Hydroxytriazolam NEGATIVE ng/mL (<50); Lorazepam, Ur GC/MS NEGATIVE ng/mL (<50); Marijuana Quant, GCMS Urine 27 ng/mL (<5); Nordiazepam, Confirm NEGATIVE ng/mL (<50); Oxazepam Ur, GC/MS NEGATIVE ng/mL (<50); Temazepam, Confirm NEGATIVE ng/mL (<50)
[2020-11-28] MEDS: clonazePAM 0.25 MG TAB PO SCH ×2 (08:30→21:12)
[2020-11-28] MEDS: MULTIVITAMIN TAB PO SCH (08:30)
[2020-11-28] MEDS: NON-FORMULARY PATIENT'S OWN MED PO SCH (08:35)
--- NOTE | 2020-11-28 08:41 | Psychiatric Progress Note ---
Date of Service November 28, 2020 Impression / Recommendations Impression 20 yo female with a history of anorexia nervosa and recurrent depressive symptoms with anxious distress presents after impulsive OD of Xanax. (1) Depression: 11/26--The patient was admitted to the [facility] ([facility] health unit) on q15 min checks (behavioral with suicide precautions) for safety. The patient will participate in group, recreational, and milieu therapies and will be offered additional individual and family sessions as clinically appropriate. LM for outpatient treating prescriber (Dr. Mooney [phone]) to coordinate care, particularly around controlled substances and my impression that may benefit from a trial of Abilify augmentation of Pristiq given recurrent nature of depression, ?cyclothymia, early ED recovery, and need to minimize benzos following OD. Also to determine need for local psychiatry care if does stay at [facility]. Reviewed that Pristiq is non-formulary and she believes boyfriend may be willing to bring today. Reviewed that can have discontinuation syndrome as well. She would rather miss dose today than take Effexor replacement. 11/27 - Pristiq 100mg was brought in for patient's use while here in the hospital. Reviewed the above [id number] discussion regarding medication recommendations. Augmentation with aripiprazole was reviewed with the patient, who is in favor of starting the medication. Risks, benefits, and potential side effects reviewed with patient verbalizing understanding. - Fasting glucose and lipid panel ordered for tomorrow morning - Family meeting scheduled for tomorrow, will encourage a discussion regarding plan for school - Coordinate aftercare services 11/28 - Patient tolerating addition of aripiprazole 2.5mg - will continue this dosage for today and revisit potential to increase to 5mg before discharge. - Family meeting scheduled with parents and their spouses today - Pt is currently reporting a plan to stay in school, and will therefore need referrals to local providers (2) Benzodiazepine overdose: 11/26--currently sleepy from lack of sleep in ED, doesn't appear to have any lasting sedation from Xanax OD. Klonopin was held this am. Patient was made aware she will not receive Xanax prn here as she misused it and prn Vistaril will be available. Reviewed that I am also concerned about depressant effects of ongoing Klonopin use, particularly in combo with regular MJ use and although won't be stopped abruptly will start tapering dose here to avoid withdrawal. Klonopin 0.25 mg BID starting tonight (previous dose prior to OD Klonopin 0.5 mg BID). 11/27 - Continue clonazepam 0.25mg BID - patient aware of tapered dose and reports desire to eventually avoid use of benzodiazepines - Pt reports feeling less foggy today, denying other physical concerns she perceives to be related to the overdose (3) Anorexia nervosa: has rather limited diet given allergies and celiac disease. involve nutrition as necessary, monitor PO intake. Risk Factors Assessment Do You Have Access To A Gun?: No Protective Factors Assessment Employed: No Interval History Identifying Information DEB PAGAN is a 20-year-old F, [employer] student from [place], has a history of anorexia nervosa, and was admitted on 11/26/20 02:04 on a 201 voluntary commitment following a Xanax OD. Chief Complaint "I'm ok. Yesterday was a long day." Review of Systems Notes Constitutional: denied Cardiovascular: denied Respiratory: denied Gastrointestinal: denied Neurological: denied Psychiatric: denies symptoms other than stated above Total of at least 10 systems reviewed, pertinent positives as above and in HPI. Sleep Information Total Hours of Sleep: 8.5 Sleep Comments: pt on q-15 minute checks Meal Information Percent Meal Consumed - Breakfast: 80 Percent Meal Consumed - Lunch: 90 Percent Meal Consumed - Dinner: 80 Subjective Subjective Patient was seen & assessed and interval progress reviewed with treatment team. Staff report the patient has been appearing bright on the unit, though there is a question that patient may be appearing elevated. Pt has been out of her room, attending groups, and supportive of peers. Pt has a meeting scheduled later this morning with her parents and their spouses. Pt was seen today to assess progress since admission. She reports she is feeling "ok." She states she participated in groups yesterday, but states it "was a long day." Pt did make several phone calls and states she has already been working, with her mom specifically, to set up discharge supports. They have discussed scheduling "check-in" times to discuss patient's mood and stress levels, as well as an appropriate frequency of visits from family. Pt states that she is not necessarily nervous about the meeting as "I'm kind of used to them after we had quite a few during my eating disorder treatment." Pt states she is tolerating her initial dose of aripiprazole, and is already feeling as though "I have more control over my mood." Pt shares that her mother was seeming depressed/upset during a phone conversation yesterday. Pt states - "normally that would have me feeling sad or depressed too, but I feel I was able to control my emotions and maintain my mood." Pt does admit that she generally matches the mood of people she is conversing with, or responding with strong emotions to television shows or movies. Pt is hopeful that the ability to maintain her mood will continue and is currently attributing it to the new medication. Pt denies SI at this time and agreed with ensuring a safety plan is discussed with her family during the meeting. Pt has already started working on her written safety plan and has found this reflection helpful. Physical Exam Psychiatric Orientation: alert, oriented x 3 and cooperative (and pleasant) Apperance: appropriately dressed, appropriately groomed and appeared stated age Eye Contact: + fair eye contact Motor Behavior: steady gait and station and no abnormal motor movements Speech: normal rate/rhythm/volume of speech Affect: euthymic affect Mood: no depressed mood ("ok") Thought Process: goal directed thought process and clear/coherent thought process Thought Content: reality based without delusions; no hopelessness Suicidal Thoughts: denies suicidal thoughts Homicidal Thoughts: denies homicidal thoughts Hallucinations: no auditory hallucinations and no visual hallucinations Cognition: recent memory grossly intact, attention grossly intact and language grossly intact Estimated Intelligence: consistent with education level Insight: + fair insight Judgement: + fair judgement Vital Signs (Past 24 Hours) Last Vital Signs Temp 36.7 C 11/28/20 06:19 Pulse 73 11/28/20 06:20 Resp 16 11/28/20 06:19 BP 94/59 L 11/28/20 06:20 Pulse Ox 97 11/26/20 02:56 Results & Data ([facility]) Laboratory Results Laboratory Results - last 24 hr 11/25/20 11/28/20 22:30 08:19 Fasting Glucose Pending Triglycerides Pending Cholesterol Pending LDL Cholesterol, Calc Pending VLDL Cholesterol, Calc Pending HDL Cholesterol Pending Cholesterol/HDL Ratio Pending U OH-Alprazolam Confrm >2000 H 7-[place] Clonazepam 654 H Ur Nordiazepam Confirm NEGATIVE U OH-ethylflurazepam NEGATIVE U Lorazepam Cnf GC/MS NEGATIVE U Oxazepam Confm GC/MS NEGATIVE Ur Temazepam Confirm NEGATIVE U OH-Triazolam Confirm NEGATIVE U OH-Midazolam Confirm NEGATIVE U Marijuana THC Carboxy 27 H Drug Screen Comment SEE NOTE Current Inpatient Medications Current Inpatient Medications: Current Inpatient Medications Acetaminophen (Acetaminophen 325 Mg Tab) 650 mg PO Q4H PRN PRN Reason: Headache or Minor Fever Stop: 12/26/20 02:51 Al Hydrox/Mg Hydrox/Simethicone (Aluminum/Magnesium Susp 30 Ml Udc) 30 ml PO Q4H PRN PRN Reason: GI Upset Stop: 12/26/20 02:51 Aripiprazole (Aripiprazole 5 Mg Tab) 2.5 mg PO QAM SAADIA Stop: 12/27/20 11:14 Last Admin: 11/27/20 13:11 Dose: 2.5 mg Documented by: Bismuth Subsalicylate (Bismuth Subsalicylate Liqd 236 Ml) 15 ml PO PRN PRN PRN Reason: Loose Stool Stop: 12/26/20 02:51 Clonazepam (Clonazepam 0.25 Mg Tab) 0.25 mg PO BID SAADIA Stop: 12/26/20 20:59 Last Admin: 11/27/20 21:01 Dose: 0.25 mg Documented by: Hydroxyzine HCl (Hydroxyzine Hcl 25 Mg Tab) 50 mg PO HSZ PRN PRN Reason: Insomnia Stop: 12/26/20 02:51 Hydroxyzine HCl (Hydroxyzine Hcl 25 Mg Tab) 25 mg PO Q4H PRN PRN Reason: Anxiety Stop: 12/26/20 02:51 Magnesium Hydroxide (Magnesium Hydroxide Susp 30 Ml Udc) 30 ml PO DAILY PRN PRN Reason: Constipation Stop: 12/26/20 02:51 Miscellaneous (Patient's Own Oral Contraceptive) 1 ea PO DAILY SAADIA Stop: 12/26/20 15:59 Last Admin: 11/27/20 08:57 Dose: 1 ea Documented by: Multivitamins (Multivitamin Tab) 1 tab PO QAM SAADIA Stop: 12/26/20 08:59 Last Admin: 11/27/20 08:53 Dose: 1 tab Documented by: Non-Formulary Medication (Non-Formulary Patient's Own Med) 1 ea PO DAILY SAADIA Stop: 12/27/20 08:59 Last Admin: 11/27/20 08:52 Dose: 1 ea Documented by: Sodium Chloride (Sodium Chloride 0.65% Na Soln 45 Ml ([place])) 1 - 2 sprays NA PRN PRN PRN Reason: Nasal Dryness/Congestion Stop: 12/26/20 02:51 Mental Health & Subst Abuse Tx Therapist Name of Therapist: Autumn Jackson (telehealth) Payroll Processor Name of Payroll Processor: N/A Post Discharge Appointments Primary Care Physician Name Of Family Doctor: [facility] Date of Appointment with PCP: 11/30/20 (1) Depression Depression Type: unspecified Qualified Code(s): F32.9 - Major depressive disorder, single episode, unspecified (2) Benzodiazepine overdose Encounter type: initial encounter Injury intent: intentional self-harm Q ualified Code(s): T42.4X2A - Poisoning by benzodiazepines, intentional self- harm, initial encounter
[2020-11-28] MEDS: PATIENT'S OWN ORAL CONTRACEPTIVE PO SCH (08:50)
[2020-11-28 09:06] LABS: Glucose Fasting 84 mg/dl (70-99)
[2020-11-28 09:12] LABS: Chol HDL Ratio 2; Cholesterol 130 mg/dl (0-200); HDL Cholesterol 75 mg/dl; LDL Cholesterol Calculated 28 mg/dl; Triglycerides 134 mg/dl (0-150); VLDL Cholesterol 27 mg/dl
[2020-11-28] MEDS: ARIPiprazole 5 MG TAB PO SCH (10:40)
[2020-11-28] MEDS: ALUMINUM/MAGNESIUM SUSP 30 ML UDC PO PRN (19:11)
[2020-11-29] MEDS: ARIPiprazole 5 MG TAB PO SCH (08:25)
[2020-11-29] MEDS: clonazePAM 0.25 MG TAB PO SCH ×2 (08:26→20:54)
[2020-11-29] MEDS: MULTIVITAMIN TAB PO SCH (08:26)
[2020-11-29] MEDS: NON-FORMULARY PATIENT'S OWN MED PO SCH (08:27)
[2020-11-29] MEDS: PATIENT'S OWN ORAL CONTRACEPTIVE PO SCH (08:28)
--- NOTE | 2020-11-29 09:12 | Psychiatric Progress Note ---
Date of Service November 29, 2020 Impression / Recommendations Impression 20 yo female with a history of anorexia nervosa and recurrent depressive symptoms with anxious distress presents after impulsive OD of Xanax. (1) Depression: 11/26--The patient was admitted to the [facility] ([facility] unit) on q15 min checks (behavioral with suicide precautions) for safety. The patient will participate in group, recreational, and milieu therapies and will be offered additional individual and family sessions as clinically appropriate. LM for outpatient treating prescriber (Dr. Mooney [phone]) to coordinate care, particularly around controlled substances and my impression that may benefit from a trial of Abilify augmentation of Pristiq given recurrent nature of depression, ?cyclothymia, early ED recovery, and need to minimize benzos following OD. Also to determine need for local psychiatry care if does stay at [facility]. Reviewed that Pristiq is non-formulary and she believes boyfriend may be willing to bring today. Reviewed that can have discontinuation syndrome as well. She would rather miss dose today than take Effexor replacement. 11/27 - Pristiq 100mg was brought in for patient's use while here in the hospital. Reviewed the above [id number] discussion regarding medication recommendations. Augmentation with aripiprazole was reviewed with the patient, who is in favor of starting the medication. Risks, benefits, and potential side effects reviewed with patient verbalizing understanding. - Fasting glucose and lipid panel ordered for tomorrow morning - Family meeting scheduled for tomorrow, will encourage a discussion regarding plan for school - Coordinate aftercare services 11/28 - Patient tolerating addition of aripiprazole 2.5mg - will continue this dosage for today and revisit potential to increase to 5mg before discharge. - Family meeting scheduled with parents and their spouses today - Pt is currently reporting a plan to stay in school, and will therefore need referrals to local providers 11/29 - Patient agreed to titration of aripiprazole to 5mg (given supplemental 2.5mg dose this AM). Risks, benefits, and potential side effects reviewed with patient verbalizing understanding. - Family meeting yesterday was reportedly productive - Solidify aftercare appointments with [facility] for outpatient psychiatric treatment (2) Benzodiazepine overdose: 11/26--currently sleepy from lack of sleep in ED, doesn't appear to have any lasting sedation from Xanax OD. Klonopin was held this am. Patient was made aware she will not receive Xanax prn here as she misused it and prn Vistaril will be available. Reviewed that I am also concerned about depressant effects of ongoing Klonopin use, particularly in combo with regular MJ use and although won't be stopped abruptly will start tapering dose here to avoid withdrawal. Klonopin 0.25 mg BID starting tonight (previous dose prior to OD Klonopin 0.5 mg BID). 11/27 - Continue clonazepam 0.25mg BID - patient aware of tapered dose and reports desire to eventually avoid use of benzodiazepines - Pt reports feeling less foggy today, denying other physical concerns she perceives to be related to the overdose (3) Anorexia nervosa: has rather limited diet given allergies and celiac disease. involve nutrition as necessary, monitor PO intake. 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 Chief Complaint "Things are good. I'm a little tired, but I don't think it's from the medicine." Review of Systems Notes Constitutional: reports poor sleep the past 2 nights Cardiovascular: denied Respiratory: denied Gastrointestinal: denied Neurological: denied Psychiatric: denies symptoms other than stated above Total of at least 10 systems reviewed, pertinent positives as above and in HPI. Sleep Information Total Hours of Sleep: 7 Sleep Comments: pt on q-15 minute checks Meal Information Percent Meal Consumed - Breakfast: 90 Percent Meal Consumed - Lunch: 80 Percent Meal Consumed - Dinner: 95 Subjective Subjective Patient was seen & assessed and interval progress reviewed with nursing and social work. Staff report the patient has been participating in group and recreational programming. She had a positive meeting with her parents yesterday and expressed desire to look into an emotional support dog, but also have parents coming to visit more frequently. Pt rated her mood a "9.85/10" last evening and reported she was proud of herself for being able to be assertive during her meeting. Pt was seen today to assess progress since admission. She states "things are good. I'm a little tired, but I don't think it's from the medicine." The patient states she had slept poorly the last two nights, but feels better as the morning goes on. She denies obvious side effects from aripiprazole and is agreeing today to titrate the dose to 5mg qAM. Pt agreed to a supplement 2.5mg dose, as she had already received her morning medications. The patient denies SI and states her family meeting went well. She reports feeling supported by her parents. She plans to call her parents daily to "check-in", but also invite her parents and their respective spouses to visit on a more regular basis. Pt states she has also talked with her roommate on the phone, who has been supportive and "is really excited to bake me cookies and meal prep with me. I'm glad I didn't, like, scare her off with all this. She says it's been really boring without me there." Pt is agreeable with a plan for discharge tomorrow, to allow for mood and side effect monitoring given medication adjustment being made today. She feels discharge just before the weekend will allow for a less stressful transition back to her apartment and into a better routine. Pt denied other needs or concerns today. Physical Exam Psychiatric Orientation: alert, oriented x 3 and cooperative Apperance: appropriately dressed, appropriately groomed and appeared stated age Eye Contact: good eye contact Motor Behavior: steady gait and station and no abnormal motor movements Speech: normal rate/rhythm/volume of speech Affect: euthymic affect and mood congruent with affect Mood: no depressed mood ("feeling good") Thought Process: goal directed thought process and clear/coherent thought process Thought Content: reality based without delusions; no hopelessness and no worthlessness Suicidal Thoughts: denies suicidal thoughts, denies suicidal plan and denies suicidal intent Homicidal Thoughts: denies homicidal thoughts Hallucinations: no auditory hallucinations and no visual hallucinations Cognition: recent memory grossly intact, attention grossly intact and language grossly intact Estimated Intelligence: consistent with education level Insight: + fair insight Judgement: + fair judgement Vital Signs (Past 24 Hours) Last Vital Signs Temp 36.6 C 11/29/20 06:24 Pulse 80 11/29/20 06:25 Resp 18 11/29/20 06:24 BP 89/55 L 11/29/20 06:25 Pulse Ox 97 11/26/20 02:56 Results & Data ([facility]) Laboratory Results Laboratory Results - last 24 hr 11/28/20 08:19 Triglycerides 134 Cholesterol 130 LDL Cholesterol, Calc 28 VLDL Cholesterol, Calc 27 HDL Cholesterol 75 Cholesterol/HDL Ratio 2 Current Inpatient Medications Current Inpatient Medications: Current Inpatient Medications Acetaminophen (Acetaminophen 325 Mg Tab) 650 mg PO Q4H PRN PRN Reason: Headache or Minor Fever Stop: 12/26/20 02:51 Al Hydrox/Mg Hydrox/Simethicone (Aluminum/Magnesium Susp 30 Ml Udc) 30 ml PO Q4H PRN PRN Reason: GI Upset Stop: 12/26/20 02:51 Last Admin: 11/28/20 19:11 Dose: 30 ml Documented by: Aripiprazole (Aripiprazole 5 Mg Tab) 2.5 mg PO QAM SAADIA Stop: 12/27/20 11:14 Last Admin: 11/29/20 08:25 Dose: 2.5 mg Documented by: Bismuth Subsalicylate (Bismuth Subsalicylate Liqd 236 Ml) 15 ml PO PRN PRN PRN Reason: Loose Stool Stop: 12/26/20 02:51 Clonazepam (Clonazepam 0.25 Mg Tab) 0.25 mg PO BID SAADIA Stop: 12/26/20 20:59 Last Admin: 11/29/20 08:26 Dose: 0.25 mg Documented by: Hydroxyzine HCl (Hydroxyzine Hcl 25 Mg Tab) 50 mg PO HSZ PRN PRN Reason: Insomnia Stop: 12/26/20 02:51 Hydroxyzine HCl (Hydroxyzine Hcl 25 Mg Tab) 25 mg PO Q4H PRN PRN Reason: Anxiety Stop: 12/26/20 02:51 Magnesium Hydroxide (Magnesium Hydroxide Susp 30 Ml Udc) 30 ml PO DAILY PRN PRN Reason: Constipation Stop: 12/26/20 02:51 Miscellaneous (Patient's Own Oral Contraceptive) 1 ea PO DAILY SAADIA Stop: 12/26/20 15:59 Last Admin: 11/29/20 08:28 Dose: 1 ea Documented by: Multivitamins (Multivitamin Tab) 1 tab PO QAM SAADIA Stop: 12/26/20 08:59 Last Admin: 11/29/20 08:26 Dose: 1 tab Documented by: Non-Formulary Medication (Non-Formulary Patient's Own Med) 1 ea PO DAILY SAADIA Stop: 12/27/20 08:59 Last Admin: 11/29/20 08:27 Dose: 1 ea Documented by: Sodium Chloride (Sodium Chloride 0.65% Na Soln 45 Ml ([place])) 1 - 2 sprays NA PRN PRN PRN Reason: Nasal Dryness/Congestion Stop: 12/26/20 02:51 Mental Health & Subst Abuse Tx Psychiatrist Name of Psychiatrist: Dr. Jack ELIAS Psychiatrist's Date of Appointment with Psychiatrist: 12/06/20 Time of Appointment with Psychiatrist: 1:15pm Therapist Name of Therapist: Autumn Jackson (telehealth) Fitting Room Supervisor Name of Fitting Room Supervisor: N/A Post Discharge Appointments Primary Care Physician Name Of Family Doctor: [facility] Date of Appointment with PCP: 11/30/20 (1) Depression Depression Type: unspecified Qualified Code(s): F32.9 - Major depressive disorder, single episode, unspecified (2) Benzodiazepine overdose Encounter type: initial encounter Injury intent: intentional self-harm Qualified Code(s): T42.4X2A - Poisoning by benzodiazepines, intentional self- harm, initial encounter
[2020-11-29] MEDS ORDERED: ARIPiprazole 5 MG TAB PO ONE (09:13)
[2020-11-29] MEDS: ALUMINUM/MAGNESIUM SUSP 30 ML UDC PO PRN (12:53)
[2020-11-30] MEDS: MULTIVITAMIN TAB PO SCH (08:32)
[2020-11-30] MEDS: clonazePAM 0.25 MG TAB PO SCH (08:32)
[2020-11-30] MEDS: PATIENT'S OWN ORAL CONTRACEPTIVE PO SCH (08:33)
[2020-11-30] MEDS: NON-FORMULARY PATIENT'S OWN MED PO SCH (08:33)
[2020-11-30] MEDS ORDERED: ARIPiprazole 5 MG TAB PO SCH (09:00)
[2020-11-30] MEDS ORDERED: DESTROY THIS MEDICATION ONE (10:22)
--- NOTE | 2020-11-30 10:32 | Discharge Summary ---
Date of Service November 30, 2020 History of Present Illness Saadia states that her mood has been "up and down" over the past year. She has struggled with restricting subtype of anorexia and had inpatient residential treatment last year. She states she has been doing well since, maintaining care providers/appointments while home in [place] and with HEALS team at [facility] when here in [place]. She states that she has non-specific anxiety re: change and ability to manage her ED and has been using Klonopin consistently for several months without incident. She denies panic, states does use prn Xanax for breakthrough anxiety though also relies on MJ most nights for anxiety/sleep. She feels it is also helpful for her appetite and ED recovery and comes from a state where it is legal but hasn't sought a medical card in [place]. 2 days leading up to OD of "a handful" of Xanax 0.25 mg she was having difficult sleeping, feeling low, and getting more rigid about her meal plan. The OD occurred following an argument with her boyfriend and she is not clear that they are/aren't broken up. She denies poor appetite but states when these spells happen, about once a month (no association with menses as on continuous suppression with OCP). She also has periods of up to a few weeks were her mood is "better than ever" and she is "super productive, like I'm on top of everything and get alot done and am very happy". She denies distractibility, pressured speech, impulsivity, etc during that time and states that others only notice when she is depressed as she is pretty outgoing/fun loving at baseline. Overall she likes Pristiq better than past medications and finds it helpful though "I still get really anxious at times" and doesn't like feeling these shifts "out of nowhere". She argued with her mother in ED over need for admission and declined an BRIAN but did communicate her whereabouts to father and step-father. Physical Exam Psychiatric Orientation: alert, oriented x 3 and cooperative Apperance: appropriately dressed and appropriately groomed Below ideal body weight Eye Contact: + fair eye contact Motor Behavior: steady gait and station Speech: normal rate/rhythm/volume of speech Affect: euthymic affect "Much better." Thought Process: goal directed thought process, linear/logical thought process and clear/coherent thought process Thought Content: reality based without delusions Suicidal Thoughts: denies suicidal thoughts Homicidal Thoughts: denies homicidal thoughts Hallucinations: no auditory hallucinations Cognition: recent memory grossly intact, remote memory grossly intact and attention grossly intact Estimated Intelligence: + above average estimated intelligence Insight: good insight Judgement: + fair judgement Vital Signs (Past 24 Hours) Last Vital Signs Temp 36.7 C 11/30/20 06:38 Pulse 87 11/30/20 06:38 Resp 18 11/30/20 06:38 BP 108/69 11/30/20 06:38 Pulse Ox 97 11/26/20 02:56 Principal Diagnosis Major depressive disorder, recurrent, severe without psychotic features. Psychiatric Data During the course of hospitalization the patient was offered various modalities of psychiatric treatment including individual, group, recreational, family and chemotherapy. The patient was continued on her outpatient dose of Pristiq, nam rebekah 100 mg daily. Pristiq was initially augmented with aripiprazole 2.5 mg daily and this dose was titrated successfully to 5 mg daily. The patient reported that she felt that aripiprazole assisted by helping to improve and to regulate her mood. In therapy, she explored cognitive distortions such as a belief that if she talks about how she is feeling, for example in response to some thing that someone has set her done, she will only worsen the situation through "negativity." The patient indicates that she feels that that deficit on her part was one of the reasons that she ended up taking the overdose the precipitated the admission. Specifically, she said that she was reluctant to reach out to anyone or to confront certain individuals regarding events that had transpired over the weekend. The patient notes that in the hospital she learned to be more direct and assertive with her feelings. The patient also was able to talk about the fact that she sometimes does have difficulty regulating her mood and can be overly "reactive." Further, the patient discussed her struggle with anorexia nervosa. She acknowledges that she has an eating disorder and also acknowledges that poor nutrition contributes to her mood difficulties and that the medicines and treatments that she has for treatment of her mood disorder are diminished in efficacy when she is not taking proper nutrition. She acknowledges that she has recently continued to compensate for caloric intake by subsequent food restriction, but, at the same time, she says that she has eliminated several other compensatory behaviors, such as abuse of laxatives and excessive exercise. Still, the patient acknowledges that her eating disorder is not in remission because, particularly under stress, she tends to engage in excessive fluid restriction. Patient also processed her decision to end her current romantic relationship. The patient reported that her mood improved substantially, particularly, she fell, in response to the addition of aripiprazole. She was clearly future oriented, and expressed both regret and embarrassment regarding her suicide attempt. With staff assistance, she worked to develop a safety plan for community reentry and at discharge was fully conversant with the plan. She also voiced intent to follow the plan should self-harm thoughts occur in the future. The treatment team was in agreement that the patient had received maximum benefit from inpatient psychiatric hospitalization and was now safe to continue her treatment on an outpatient basis. Day of Discharge Assessment On the day of discharge the patient was found to be pleasant, appropriate, as well as appropriately dressed and groomed. Her speech was delivered at a normal rate and volume and was spontaneous. The patient's thought processes demonstrated tight associations. Her thought content was devoid of any psychotic features. There is also no evidence of any perceptual disturbances. The patient focus primarily on her strategies for maintaining mood stabilization and the improvement that she has enjoyed during the psychiatric hospitalization. She also notes that she wants to focus on avoiding food restrictions, and on the task of being aware of her tendency to "distort things," without affirmatively checking to see if her cognitive assumptions are accurate. The patient convincingly reports that she is not experiencing any further thoughts of suicide. She is clearly future oriented, and notes that she intends to take her community safety plan seriously and use it as indicated. The patient's insight is identified as good. Her judgment is at least fair, and she does focus on continuing with the advances achieved during the hospitalization by working hard with her therapist on an outpatient basis. Transition of Care Transition Of Care Record: was reviewed with the patient Advance Directives Advance Directives Information Provided: Yes Advance Directives: No Mental Health Advance Directive: No Advance Directives on File: No Living Will: No Power of Torch Burner: No Advance Directives Reason:: Declines as Mental Health Visit. Risk Factors Assessment History of suicide attempt. History of major depression. Mitigating factors include a strong support network, including family, and clear future orientation. Male: No : Yes Do You Have Access To A Gun?: No Health Problems: No Mental Health Diagnoses: Yes Substance Use Disorders: No Previous Attempt: No Family History of Suicide: No Previous Psychiatric Hospitalization: No Hopelessness: No Smoker: No Protective Factors Assessment : No Responsible for Young Children: No Employed: No Stable Relationships: Yes Supportive Family: Yes Good Rapport with Provider: Yes Absence of Any Risk Factors Above: No Tobacco Cessation at Discharge Tobacco Cessation Medication Prescribed at Discharge: Not Applicable/Non-Smoker Antipsychotic Medications Abilify for mood regulation and as an adjunct antidepressant Total Time Total Time Spent: Greater Than 30 Minutes Total Time Includes: Examination of the patient, Discharge Planning, Medication Reconciliation and Communication with other providers Discharge Data Lab Results 11/25/20 11/25/20 11/25/20 19:03 19:03 19:03 WBC 8.19 RBC 4.68 Hgb 14.5 Hct 41.8 MCV 89.3 MCH 31.0 MCHC 34.7 RDW Std Deviation 40.8 RDW Coeff of [place] 12.6 Plt Count 251 MPV 11.1 H Immature Gran % (Auto) 0.1 Neut % (Auto) 64.3 Lymph % (Auto) 29.4 [place] % (Auto) 5.6 Eos % (Auto) 0.4 Baso % (Auto) 0.2 Neut # (Auto) 5.26 Lymph # (Auto) 2.41 [place] # (Auto) 0.46 Eos # (Auto) 0.03 Baso # (Auto) 0.02 Immature Gran # (Auto) 0.01 Sodium 141 Potassium 4.4 Chloride 106 Carbon Dioxide 28 Anion Gap 7.0 BUN 11 Creatinine 0.87 Est Cr Clr Drug Dosing 84.0 Est GFR ( Amer) 110.4 Est GFR (Non-Af Amer) 95.2 BUN/Creatinine Ratio 12.5 Glucose 82 Fasting Glucose Calcium 9.5 Total Bilirubin 1.3 H AST 11 L ALT 17 Alkaline Phosphatase 60 Total Protein 7.1 Albumin 4.0 Globulin 3.1 Albumin/Globulin Ratio 1.3 Triglycerides Cholesterol LDL Cholesterol, Calc VLDL Cholesterol, Calc HDL Cholesterol Cholesterol/HDL Ratio TSH 1.300 HCG, Qual Urine Color Urine Appearance Urine pH Ur Specific [place] Urine Protein Urine Glucose (UA) Urine Ketones Urine Blood Urine Nitrite Urine Bilirubin Urine Urobilinogen Ur Leukocyte Esterase Urine WBC (Auto) Urine RBC (Auto) U Hyaline Cast (Auto) U Epithel Cells (Auto) Urine Bacteria (Auto) Salicylates < 1.7 L Urine Opiates Screen Ur Methadone, Qual Acetaminophen < 2 L Urine Barbiturates Ur Phencyclidine (PCP) U Amphetamin/Meth Scrn MDMA (Ecstasy) Screen U OH-Alprazolam Confrm U Benzodiazepines Scrn 7-Amino Clonazepam Ur Nordiazepam Confirm U OH-ethylflurazepam U Lorazepam Cnf GC/MS U Oxazepam Confm GC/MS Ur Temazepam Confirm U OH-Triazolam Confirm U OH-Midazolam Confirm Ur Cocaine Metabolite U Marijuana (THC) Screen U Marijuana THC Carboxy Drug Screen Comment Ethyl Alcohol mg/dL COVID-19 Eval Order SARS-CoV-2, RNA, NAAT 11/25/20 11/25/20 11/25/20 19:03 19:03 20:14 WBC RBC Hgb Hct MCV MCH MCHC RDW Std Deviation RDW Coeff of [place] Plt Count MPV Immature Gran % (Auto) Neut % (Auto) Lymph % (Auto) [place] % (Auto) Eos % (Auto) Baso % (Auto) Neut # (Auto) Lymph # (Auto) [place] # (Auto) Eos # (Auto) Baso # (Auto) Immature Gran # (Auto) Sodium Potassium Chloride Carbon Dioxide Anion Gap BUN Creatinine Est Cr Clr Drug Dosing Est GFR ( Amer) Est GFR (Non-Af Amer) BUN/Creatinine Ratio Glucose Fasting Glucose Calcium Total Bilirubin AST ALT Alkaline Phosphatase Total Protein Albumin Globulin Albumin/Globulin Ratio Triglycerides Cholesterol LDL Cholesterol, Calc VLDL Cholesterol, Calc HDL Cholesterol Cholesterol/HDL Ratio TSH HCG, Qual Negative Urine Color Urine Appearance Urine pH Ur Specific [place] Urine Protein Urine Glucose (UA) Urine Ketones Urine Blood Urine Nitrite Urine Bilirubin Urine Urobilinogen Ur Leukocyte Esterase Urine WBC (Auto) Urine RBC (Auto) U Hyaline Cast (Auto) U Epithel Cells (Auto) Urine Bacteria (Auto) Salicylates Urine Opiates Screen Ur Methadone, Qual Acetaminophen Urine Barbiturates Ur Phencyclidine (PCP) U Amphetamin/Meth Scrn MDMA (Ecstasy) Screen U OH-Alprazolam Confrm U Benzodiazepines Scrn 7-Amino Clonazepam Ur Nordiazepam Confirm U OH-ethylflurazepam U Lorazepam Cnf GC/MS U Oxazepam Confm GC/MS Ur Temazepam Confirm U OH-Triazolam Confirm U OH-Midazolam Confirm Ur Cocaine Metabolite U Marijuana (THC) Screen U Marijuana THC Carboxy Drug Screen Comment Ethyl Alcohol mg/dL < 3.0 COVID-19 Eval [facility] SARS-CoV-2, RNA, NAAT 11/25/20 11/25/20 11/25/20 20:14 22:30 22:30 WBC RBC Hgb Hct MCV MCH MCHC RDW Std Deviation RDW Coeff of [place] Plt Count MPV Immature Gran % (Auto) Neut % (Auto) Lymph % (Auto) [place] % (Auto) Eos % (Auto) Baso % (Auto) Neut # (Auto) Lymph # (Auto) [place] # (Auto) Eos # (Auto) Baso # (Auto) Immature Gran # (Auto) Sodium Potassium Chloride Carbon Dioxide Anion Gap BUN Creatinine Est Cr Clr Drug Dosing Est GFR ( Amer) Est GFR (Non-Af Amer) BUN/Creatinine Ratio Glucose Fasting Glucose Calcium Total Bilirubin AST ALT Alkaline Phosphatase Total Protein Albumin Globulin Albumin/Globulin Ratio Triglycerides Cholesterol LDL Cholesterol, Calc VLDL Cholesterol, Calc HDL Cholesterol Cholesterol/HDL Ratio TSH HCG, Qual Urine Color Dark Yellow Urine Appearance Clear Urine pH 6.5 Ur Specific [place] 1.022 Urine Protein 1+ H Urine Glucose (UA) Negative Urine Ketones 1+ H Urine Blood Negative Urine Nitrite Negative Urine Bilirubin Negative Urine Urobilinogen Negative Ur Leukocyte Esterase Negative Urine WBC (Auto) 1-5 Urine RBC (Auto) 0-4 U Hyaline Cast (Auto) 1-5 U Epithel Cells (Auto) >30 H Urine Bacteria (Auto) Negative Salicylates Urine Opiates Screen Neg Ur Methadone, Qual Neg Acetaminophen Urine Barbiturates Neg Ur Phencyclidine (PCP) Neg U Amphetamin/Meth Scrn Neg MDMA (Ecstasy) Screen Neg U OH-Alprazolam Confrm U Benzodiazepines Scrn Pos H 7-Amino Clonazepam Ur Nordiazepam Confirm U OH-ethylflurazepam U Lorazepam Cnf GC/MS U Oxazepam Confm GC/MS Ur Temazepam Confirm U OH-Triazolam Confirm U OH-Midazolam Confirm Ur Cocaine Metabolite Neg U Marijuana (THC) Screen Pos H U Marijuana THC Carboxy Drug Screen Comment Ethyl Alcohol mg/dL COVID-19 Eval Order SARS-CoV-2, RNA, NAAT NEGATIVE 11/25/20 11/28/20 22:30 08:19 WBC RBC Hgb Hct MCV MCH MCHC RDW Std Deviation RDW Coeff of [place] Plt Count MPV Immature Gran % (Auto) Neut % (Auto) Lymph % (Auto) [place] % (Auto) Eos % (Auto) Baso % (Auto) Neut # (Auto) Lymph # (Auto) [place] # (Auto) Eos # (Auto) Baso # (Auto) Immature Gran # (Auto) Sodium Potassium Chloride Carbon Dioxide Anion Gap BUN Creatinine Est Cr Clr Drug Dosing Est GFR ( Amer) Est GFR (Non-Af Amer) BUN/Creatinine Ratio Glucose Fasting Glucose 84 Calcium Total Bilirubin AST ALT Alkaline Phosphatase Total Protein Albumin Globulin Albumin/Globulin Ratio Triglycerides 134 Cholesterol 130 LDL Cholesterol, Calc 28 VLDL Cholesterol, Calc 27 HDL Cholesterol 75 Cholesterol/HDL Ratio 2 TSH HCG, Qual Urine Color Urine Appearance Urine pH Ur Specific [place] Urine Protein Urine Glucose (UA) Urine Ketones Urine Blood Urine Nitrite Urine Bilirubin Urine Urobilinogen Ur Leukocyte Esterase Urine WBC (Auto) Urine RBC (Auto) U Hyaline Cast (Auto) U Epithel Cells (Auto) Urine Bacteria (Auto) Salicylates Urine Opiates Screen Ur Methadone, Qual Acetaminophen Urine Barbiturates Ur Phencyclidine (PCP) U Amphetamin/Meth Scrn MDMA (Ecstasy) Screen U OH-Alprazolam Confrm >2000 H U Benzodiazepines Scrn 7-Amino Clonazepam 654 H Ur Nordiazepam Confirm NEGATIVE U OH-ethylflurazepam NEGATIVE U Lorazepam Cnf GC/MS NEGATIVE U Oxazepam Confm GC/MS NEGATIVE Ur Temazepam Confirm NEGATIVE U OH-Triazolam Confirm NEGATIVE U OH-Midazolam Confirm NEGATIVE Ur Cocaine Metabolite U Marijuana (THC) Screen U Marijuana THC Carboxy 27 H Drug Screen Comment SEE NOTE Ethyl Alcohol mg/dL COVID-19 Eval Order SARS-CoV-2, RNA, NAAT Hospital Course (1) Depression: 11/26--The patient was admitted to the [facility] ([facility] inpatient mental health unit) on q15 min checks (behavioral with suicide precautions) for safety. The patient will participate in group, recreational, and milieu therapies and will be offered additional individual and family sessions as clinically appropriate. LM for outpatient treating prescriber (Dr. Mooney [phone]) to coordinate care, particularly around controlled substances and my impression that may benefit from a trial of Abilify augmentation of Pristiq given recurrent nature of depression, ?cyclothymia, early ED recovery, and need to minimize benzos following OD. Also to determine need for local psychiatry care if does stay at [facility]. Reviewed that Pristiq is non-formulary and she believes boyfriend may be willing to bring today. Reviewed that can have discontinuation syndrome as well. She would rather miss dose today than take Effexor replacement. 11/27 - Pristiq 100mg was brought in for patient's use while here in the hospital. Reviewed the above [id number] discussion regarding medication recommendations. Augmentation with aripiprazole was reviewed with the patient, who is in favor of starting the medication. Risks, benefits, and potential side effects reviewed with patient verbalizing understanding. - Fasting glucose and lipid panel ordered for tomorrow morning - Family meeting scheduled for tomorrow, will encourage a discussion regarding plan for school - Coordinate aftercare services 11/28 - Patient tolerating addition of aripiprazole 2.5mg - will continue this dosage for today and revisit potential to increase to 5mg before discharge. - Family meeting scheduled with parents and their spouses today - Pt is currently reporting a plan to stay in school, and will therefore need referrals to local providers 11/29 - Patient agreed to titration of aripiprazole to 5mg (given supplemental 2.5mg dose this AM). Risks, benefits, and potential side effects reviewed with patient verbalizing understanding. - Family meeting yesterday was reportedly productive - Solidify aftercare appointments with [facility] for outpatient psychiatric treatment 11/30 -Aftercare plans finalized. The patient has an appointment with Dr. Jenny Santiago at [facility] on 12/06/2020. -The patient reviewed her community safety plan which includes directly communicating feelings appropriately with her support network, including friends and family. -The patient indicates that she is tolerating her psychiatric medications well. The plan will be for her to continue low-dose of Klonopin on an outpatient basis. The dose of Klonopin during the hospitalization had been set at approximately half the dose that she had been taking on an outpatient basis; namely, instead of Klonopin 0.5 mg twice a day she has been taking Klonopin 0.25 mg twice a day, and she is aware of that she will use the supply of 0.5 mg tablets that was ordered on an outpatient basis prior to her admission by taking one half of a 0.5 mg tablet twice a day. She will also continue to take Pristiq 100 mg daily with aripiprazole 5 mg daily for mood stabilization and augmentation purposes. (2) Benzodiazepine overdose: 11/26--currently sleepy from lack of sleep in ED, doesn't appear to have any lasting sedation from Xanax OD. Klonopin was held this am. Patient was made aware she will not receive Xanax prn here as she misused it and prn Vistaril will be available. Reviewed that I am also concerned about depressant effects of ongoing Klonopin use, particularly in combo with regular MJ use and although won't be stopped abruptly will start tapering dose here to avoid withdrawal. Klonopin 0.25 mg BID starting tonight (previous dose prior to OD Klonopin 0.5 mg BID). 11/27 - Continue clonazepam 0.25mg BID - patient aware of tapered dose and reports desire to eventually avoid use of benzodiazepines - Pt reports feeling less foggy today, denying other physical concerns she perceives to be related to the overdose 11/30 -The patient has consistently denied further suicidal ideation. She points out that shortly after she took the overdose she called 911 for help and indicates that even during the height of her impulsivity she was highly ambivalent. The patient notes that her primary goal at this point is to avoid the risk of a similar behavior in the future, and in the service of the goal she talks at some length about her safety plan and her need to not be afraid to let people know how she is feeling, particularly if she is having self-destructive thoughts. The patient also notes that she will come to the emergency room if suicidal thoughts occur and she is not able to access her community support network. (3) Anorexia nervosa: has rather limited diet given allergies and celiac disease. involve nutrition as necessary, monitor PO intake. 11/30 -The patient's food intake during hospitalization has been adequate. She voices insight into the fact that she has an eating disorder and is able to identify the ways in which her eating disorder is harmful to her, both physically and in terms of helping her manage her mood disorder. -Patient is able to draw link between emotional distress, difficulty with mood regulation, and engaging in compensatory behaviors associated with her eating disorder, such as food restriction and, in the past, abuse of laxatives and excessive exercise. Mental Health & Subst Abuse Tx Psychiatrist Name of Psychiatrist: Dr. Jack ELIAS Psychiatrist's Date of Appointment with Psychiatrist: 12/06/20 Time of Appointment with Psychiatrist: 1:15pm Psychiatrist Release of Information: Obtained, Reviewed and Signed Therapist Name of Therapist: Abiscott Christensen LPC Therapist's Date of Therapist Appointment: 12/03/20 Time of Therapist Appointment: 2pm Therapy Appointment Comment: telehealth Therapist Release of Information: Obtained, Reviewed and Signed Linux System Administrator Name of Linux System Administrator: Petra at [facility], or Renetta at [facility] Phone Number for Linux System Administrator: [phone] Case Management Appointment Comment: As needed Linux System Administrator Release of Information: Obtained, Reviewed and Signed Post Discharge Appointments Primary Care Physician Name Of Family Doctor: [facility] Primary Care Phone Number: [phone] Date of Appointment with PCP: 12/03/20 Time of Appointment with PCP: 11:00 Primary Care Release of Information: Obtained, Reviewed and Signed Smoking Cessation Counseling Tobacco Cessation Medication Prescribed at Discharge: Not Applicable/Non-Smoker Contact Information Discharge Discharge Address: [address] [place] [address] Discharge Plan Discharge Items Patient Disposition: Home - Self-Care Reason For Visit: MDD Discharge Diagnosis: Major Depressive Disorder, Recurrent, Severe Condition on Discharge: Good Activity: Resume your previous activity Non-emergency contact: Primary Care Provider and Psychiatrist Call non-emergency contact if: you have any medication questions and your symptoms worsen Follow-up/Referrals: [facility] [Primary Care Provider] - Diet: Regular Addtl Attending Provider Instructions: SPECIAL CARE INSTRUCTIONS: 1. Follow through with your scheduled aftercare appointments. If unable to keep an appointment, please call to reschedule. 2. Take your medication only as prescribed. Medication should not be changed or stopped without the approval of your doctor. In the event of worsening symptoms or concerns about side effects, contact your doctor immediately. 3. Utilize new healthy coping skills, anger management skills, and stress management skills learned during your hospitalization. Journal feelings and process them with a support person. Identify stressors or situations that may result in relapse, deterioration or inappropriate behaviors and develop a plan to deal with those issues. 4. If your coping skills are ineffective and you are in crisis, contact your outpatient providers for direction. If unable to reach your providers, please call the [facility] CRISIS LINE AT , go to the [facility] walk-in center at [address], [address], [place], or go to the closest Emergency Room. 5. Avoid alcohol and un-prescribed drugs. 6. You have been provided with the Mental Health Advance Directives Pamphlet for your review. AFTERCARE APPOINTMENTS: * Please call your insurance company prior to your scheduled appointment to confirm your aftercare providers are covered. Take your insurance information to your appointments. WHO TO CALL AND WHEN: Medical Emergencies: For questions or emergencies related to your hospital stay, please contact the [facility]patient [facility] at [phone]. A cone marker is on-call 11/05 for the Behavioral [facility] for emergencies At any time you feel your situation is an emergency, you may also call 911 immediately. Pending Studies at Discharge: No Stand-Alone Forms: My [facility] [employer], Smoking Cessation Medications and DC Order Prescriptions: New aripiprazole [Abilify] 5 mg Tablet 5 mg PO QAM Qty: 30 RF: 0 Continued multivitamin Tablet 1 tab PO QAM RF: 0 [id number] 333-133-5 mg Tablet 1 tab PO QAM RF: 0 desvenlafaxine succinate [Pristiq] 100 mg Tablet Extended Release 24 Hr 100 mg PO DAILY RF: 0 norethindrone ac-eth estradiol [June11/07 ()] 1-20 mg-mcg tablet 1 tab PO QAM RF: 0 Changed clonazepam [Klonopin] 0.5 mg Tablet 0.25 mg PO BID Qty: 0 RF: 0 Discontinued alprazolam [Xanax] 0.25 mg Tablet 0.25 mg PO TID PRN (Reason: Anxiety) RF: 0 Discharge Orders: Discharge Order (Routine); Ordered 11/30/20 Ordered By: Jaret Quan Admission Data Admit Date/Time: 11/26/20 02:04 Attending Provider: Jenny Santiago Admit Provider: Jenny Santiago Primary Care Provider: [place],[facility] Other Interventions: PSY Interdisciplinary Discharge Planning Last Done: 11/30/20 09:34 Coding [place] [address] D/C day mgmt > 30 min Patient Type Established History Expanded Problem Focused Exam Expanded Problem Focused Medical Decision Making Moderate Complexity Diagnoses Depression F32.9 Depression Type: unspecified Benzodiazepine overdose T42.4X2A Encounter type: initial encounter Injury intent: intentional self-harm Anorexia nervosa F50.00 Time Spent (min) 60
== END 2020-11-30 11:05 | disposition home or self-care (01) | DRG 885 ==
LOC: ED 18:29 → 3S 11-26 02:04 → SUATTDRO 11-26 02:04 → 3S 11-26 02:22